=== PATIENT | female | born 1940 | race Caucasian/White ===

== ENCOUNTER 2017-11-25 12:08 | Inpatient (IN) | payer MEDICARE, MEDICAID ==
[~2017-11-25] VITALS: Ht 162.6 cm; Wt 81.2 kg
[~2017-11-25 12:08] MED LIST: CAPTOPRIL PO; CAPTOPRIL25 M1 PO; DIOVAN PO; DIOVAN80 MG PO; METFORMIN; METOPROLOL TART25 MG PO; NORVASC; NORVASC PO; NORVASC5 MG PO; RESTORIL7.5 MG PO
[2017-11-25 12:10] VITALS: BP 139/73
--- NOTE | 2017-11-25 12:55 | Emergency Room Report ---
History of Present Illness General Chief Complaint: General Complaint Source: Patient Present Illness HPI 77-year-old female presents to the emergency department brought by daughter for weakness, decreased appetite and cough x1 week. Daughter explains that patient was sent to the emergency department for evaluation from outpatient clinic. Patient was hypotensive in the clinic. Daughter states that she did not give her mother would labetalol or nifedipine this a.m. she has a history of [place], CHF , end-stage renal failure and is on dialysis 3 times a week and her last dialysis was performed on . Denies fevers or chills. History of present illness is primarily provided by daughter who is m1 armor crewman. Denies CP, Palpitations, LOC, AMS, dizziness, Changes in Vision, Sensation, paresthesias, or a sudden severe headache. Allergies: Coded Allergies: AZITHROMYCIN (Verified Allergy, Unknown, 11/25/17) WARFARIN (Verified Allergy, Unknown, 11/25/17) Patient History Limited by: language barrier - daughter translates Past Medical History: see triage record, HTN, [place], CHF, renal disease, dialysis Past Surgical History: unable to obtain Pertinent Family History: unable to obtain Now: No Reviewed Nursing Documentation: PMH: Agreed, PSxH: Agreed Nursing Documentation-PMH Past Medical History: No History, Except For Hx Cardiac Problems: Yes Hx Hypertension: Yes Hx Diabetes: Yes Hx Cancer: No Hx Gastrointestinal Problems: Yes Hx Neurological Problems: Yes Hx Cerebrovascular Accident: Yes - 2004 WD RIGHTSIDED WEAKNESS. NO RESIDUALS Review of Systems All Other Systems: negative except mentioned in HPI Physical Exam Vital Signs Date Time Temp Pulse Resp B/P (MAP) Pulse Ox O2 Delivery O2 Flow Rate FiO2 11/25/17 12:10 97.7 72 18 147/68 100 Room Air 97.7 Sp02 EP Interpretation: reviewed, normal General Appearance: no apparent distress, alert, non-toxic, lethargic Head: normocephalic, atraumatic Eyes: bilateral eye normal inspection, bilateral eye PERRL ENT: hearing grossly normal, normal voice Neck: full range of motion Respiratory: chest non-tender, lungs clear, normal breath sounds, speaking full sentences Cardiovascular #1: regular rate, rhythm, no JVD, edema - 1+ pitting edema bilaterally Gastrointestinal: normal bowel sounds, non tender, soft Rectal: deferred Genitourinary: deferred Musculoskeletal: back normal, gait/station normal, normal range of motion, non- tender Neurologic: alert, responsive, motor strength/tone normal - equal but decreased., sensory intact, speech normal, grossly normal Psychiatric: judgement/insight normal - pt. very slow to respond, accuracy is questionable Skin: normal color, no rash, warm/dry, well hydrated Medical Decision Making PA Attestation Dr. Rubi is my supervising Physician whom patient management has been discussed with. Diagnostic Impression: Primary Impression: Renal failure Qualified Codes: N18.6 - End stage renal disease; Z99.2 - Dependence on renal dialysis Additional Impression: Failure to thrive in adult ER Course 77-year-old female presents to the emergency department brought by daughter for weakness, decreased appetite and cough x1 week. Daughter explains that patient was sent to the emergency department for evaluation from outpatient clinic. Patient was hypotensive in the clinic. Daughter states that she did not give her mother would labetalol or nifedipine this a.m. she has a history of [place], CHF , end-stage renal failure and is on dialysis 3 times a week and her last dialysis was performed on . Denies fevers or chills. History of present illness is primarily provided by daughter who is m1 armor crewman. Denies CP, Palpitations, LOC, AMS, dizziness, Changes in Vision, Sensation, paresthesias, or a sudden severe headache. Ddx considered but are not limited to CHF, [place], pneumonia, contusion, costochondritis, PE, ACS, aortic dissection. Vital signs: are WNL, pt. is afebrile H&PE are most consistent with Failure to Thrive in presence of ESRD, CHF ORDERS: - EK BPM NSR - no acute ST changes reviewed by Dr. Smith , this interpretation was scribed by CANDY Santos -CBC:unremarkable -CMP: elevated glucose, elevated Cr/BUN, low albumin -Lactic Acid: 3.1, refluxed and was 1.8 -Troponin: 0.1, repeat was 0.09 -BNP: 83833 -Blood Cultures x 2 :Pending CXR: no Effusion, no pneumothorax- cardiomegaly, pace maker and sternal wires. ED INTERVENTIONS: - PT. placed on cardiac monitoring. DISPOSITION: at this time pt. will be admitted to Dr. White for Generalized weakness, FTT, Renal Failure. Dr. White agreed to admit the pt. and to continue pt. care management. Labs Test 11/25/17 14:30 11/25/17 17:45 White Blood Count 7.3 K/UL (4.8-10.8) Red Blood Count 4.23 M/UL (4.20-5.40) Hemoglobin 11.9 G/DL (12.0-16.0) Hematocrit 36.4 % (37.0-47.0) Mean Corpuscular Volume 86 FL (80-99) Mean Corpuscular Hemoglobin 28.2 PG (27.0-31.0) Mean Corpuscular Hemoglobin Concent 32.7 G/DL (32.0-36.0) Red Cell Distribution Width 13.8 % (11.6-14.8) Platelet Count 220 K/UL (150-450) Mean Platelet Volume 7.5 FL (6.5-10.1) Neutrophils (%) (Auto) 67.6 % (45.0-75.0) Lymphocytes (%) (Auto) 24.8 % (20.0-45.0) Monocytes (%) (Auto) 5.8 % (1.0-10.0) Eosinophils (%) (Auto) 1.5 % (0.0-3.0) Basophils (%) (Auto) 0.3 % (0.0-2.0) Sodium Level 125 MMOL/L (136-145) Potassium Level 3.1 MMOL/L (3.5-5.1) Chloride Level 82 MMOL/L (98-107) Carbon Dioxide Level 31 MMOL/L (21-32) Anion Gap 12 mmol/L (5-15) Blood Urea Nitrogen 49 mg/dL (7-18) Creatinine 7.6 MG/DL (0.55-1.30) Estimat Glomerular Filtration Rate mL/min (>60) Glucose Level 226 MG/DL (74-106) Calcium Level 9.5 MG/DL (8.5-10.1) Total Bilirubin 0.4 MG/DL (0.2-1.0) Aspartate Amino Transf (AST/SGOT) 27 U/L (15-37) Alanine Aminotransferase (ALT/SGPT) 20 U/L (12-78) Alkaline Phosphatase 104 U/L (46-116) Pro-B-Type Natriuretic Peptide 71432 pg/mL (0-125) Total Protein 6.9 G/DL (6.4-8.2) Albumin 3.0 G/DL (3.4-5.0) Globulin 3.9 g/dL Albumin/Globulin Ratio 0.8 (1.0-2.7) Lactic Acid Level 1.80 mmol/L (0.66-2.22) Troponin I 0.091 ng/mL (0.000-0.056) EKG Diagnostic Results Rate: normal - 63 Rhythm: NSR - normal rhythm with frequent PVC's ST Segments: no acute changes Other Impression incomplete RBBB. Chest X-Ray Diagnostic Results Chest X-Ray Diagnostic Results : Chest X-Ray Ordered: Yes # of Views/Limited/Complete: 1 View Indication: Other - weakness EP Interpretation: Yes PA Xray: Interpretation reviewed, by supervising MD, and agrees with findings. Interpretation: no consolidation, no effusion, no pneumothorax, no acute cardiopulmonary disease, other - cardiomegaly, pace maker and sternal wires. Impression: No acute disease Electronically Signed by: Marlin Santos PA-C Last Vital Signs Date Time Temp Pulse Resp B/P (MAP) Pulse Ox O2 Delivery O2 Flow Rate FiO2 11/25/17 12:10 97.7 72 18 147/68 100 Room Air 97.7 Disposition: ADMITTED INPATIENT Condition: Serious Marlin Santos Nov 25, 2017 12:55
[2017-11-25] MEDS ORDERED: SENNA8.6 M2 PO (13:30)
[2017-11-25] MEDS ORDERED: ATORVASTATIN CA40 MG ORAL (13:30)
[2017-11-25] MEDS ORDERED: ELIQUIS2.5 MG PO (13:30)
[2017-11-25] MEDS ORDERED: LEVOTHYROXINE125 MCG ORAL (13:30)
[2017-11-25] MEDS ORDERED: ADALAT10 MG ORAL (13:30)
[2017-11-25] MEDS ORDERED: RENVELA2.4 GM ORAL (13:30)
[2017-11-25] MEDS ORDERED: METOPROLOL TART50 M1 ORAL (13:30)
[2017-11-25 14:30] VITALS: BP 144/63
--- NOTE | 2017-11-25 14:37 | Diagnostic Imaging Report ---
Indication: Shortness of breath Technique: One view of the chest Comparison: 12/29/2012 Findings: Interim median sternotomy and pacemaker placement. The heart is mildly enlarged. The lungs and pleural spaces are clear. Impression: Mild cardiomegaly. No acute process Postsurgical changes, as described
[2017-11-25 14:59] LABS: BASOPHILS % (AUTO) 0.3 % (0.0-2.0); EOSINOPHILS % (AUTO) 1.5 % (0.0-3.0); HEMATOCRIT 36.4 % (37.0-47.0); HEMOGLOBIN 11.9 G/DL (12.0-16.0); LYMPHOCYTES % (AUTO) 24.8 % (20.0-45.0); MEAN CORPUSCULAR VOLUME 86 FL (80-99); MONOCYTES % (AUTO) 5.8 % (1.0-10.0); NEUTROPHILS % (AUTO) 67.6 % (45.0-75.0); PLATELET COUNT 220 K/UL (150-450); RED BLOOD COUNT 4.23 M/UL (4.20-5.40); RED CELL DISTRIBUTION WIDTH 13.8 % (11.6-14.8); WHITE BLOOD COUNT 7.3 K/UL (4.8-10.8)
[2017-11-25 15:12] VITALS: BP 128/53
[2017-11-25 15:47] LABS: ANION GAP 12 mmol/L (5-15); BLOOD UREA NITROGEN 49 mg/dL (7-18); CALCIUM 9.5 MG/DL (8.5-10.1); CARBON DIOXIDE 31 MMOL/L (21-32); CHLORIDE 82 MMOL/L (98-107); CREATININE 7.6 MG/DL (0.55-1.30); POTASSIUM 3.1 MMOL/L (3.5-5.1); SODIUM 125 MMOL/L (136-145)
[2017-11-25 16:01] LABS: ALANINE AMINOTRANSFERASE 20 U/L (12-78); ALBUMIN/GLOBULIN RATIO 0.8 (1.0-2.7); ALKALINE PHOSPHATASE 104 U/L (46-116); ASPARTATE AMINO TRANSFERASE 27 U/L (15-37); BILIRUBIN,TOTAL 0.4 MG/DL (0.2-1.0)
[2017-11-25] MEDS: Sodium Chloride 500ML 550 ML IV SCH (16:11)
[2017-11-25 17:10] VITALS: BP 142/63
[2017-11-25] MEDS ORDERED: Albuterol/Ipratropium 3ml neb HHN PRN (17:30)
[2017-11-25] MEDS ORDERED: Miralax 17gm pkt ORAL PRN (17:30)
[2017-11-25] MEDS: Eliquis 2.5mg tablet ORAL SCH (18:45)
[2017-11-25] MEDS: Renvela 2400 mg pkt ORAL SCH (18:45)
[2017-11-25 20:00] VITALS: BP 129/60
--- NOTE | 2017-11-25 20:15 | Consultation ---
Consult Note Consult Note NEUROLOGY CONSULTATION: Patient not cooperative even with Ukrainian printer repair technician. Unable to evaluate. Please only call back if and when patient agrees to be cooperative. Thanks! Clif King M.D., M.S.P.H. CLIF KING Nov 25, 2017 20:15
[2017-11-25] MEDS: Atorvastatin 20mg tab ORAL SCH (20:49)
[2017-11-25] MEDS ORDERED: Heparin 5000 units/ml inj SUBQ SCH (21:00)
[2017-11-26] VITALS: BP 147/74
[2017-11-26] MEDS: Sodium Chloride 500ML 550 ML IV SCH (03:17)
[2017-11-26 04:00] VITALS: BP 152/68
[2017-11-26] MEDS: Levothyroxine 25mcg tab ORAL SCH (06:50)
[2017-11-26 08:00] VITALS: BP 158/65
[2017-11-26] MEDS: Renvela 2400 mg pkt ORAL SCH ×3 (08:14→18:01)
[2017-11-26] MEDS: Eliquis 2.5mg tablet ORAL SCH ×2 (08:18→18:01)
--- NOTE | 2017-11-26 08:41 | General Progress Note ---
Progress Note Progress Note pt seen and examined full dialysis was ordered CLAYTON TRUONG Nov 26, 2017 08:41
[2017-11-26 08:51] LABS: BASOPHILS % (AUTO) 0.3 % (0.0-2.0); EOSINOPHILS % (AUTO) 0.3 % (0.0-3.0); HEMATOCRIT 34.3 % (37.0-47.0); HEMOGLOBIN 11.7 G/DL (12.0-16.0); LYMPHOCYTES % (AUTO) 12.5 % (20.0-45.0); MEAN CORPUSCULAR VOLUME 85 FL (80-99); MONOCYTES % (AUTO) 9.5 % (1.0-10.0); NEUTROPHILS % (AUTO) 77.5 % (45.0-75.0); PLATELET COUNT 194 K/UL (150-450); RED BLOOD COUNT 4.02 M/UL (4.20-5.40); RED CELL DISTRIBUTION WIDTH 13.8 % (11.6-14.8); WHITE BLOOD COUNT 7.8 K/UL (4.8-10.8)
--- NOTE | 2017-11-26 08:53 | Cardiology Progress Note ---
Assessment/Plan Assessment/Plan The patient is seen and examined, full consult note will be dictated shortly. Objective Last 24 Hour Vital Signs Date Time Temp Pulse Resp B/P (MAP) Pulse Ox O2 Delivery O2 Flow Rate FiO2 11/26/17 08:00 99.0 70 20 158/65 98 Nasal Cannula 3.0 11/26/17 07:35 78 18 Nasal Cannula 2.0 28 11/26/17 05:35 73 24 100 Nasal Cannula 3.0 32 11/26/17 05:23 65 22 94 Nasal Cannula 2.0 28 11/26/17 04:00 97.7 78 22 152/68 96 Nasal Cannula 11/26/17 04:00 64 11/26/17 00:00 59 11/26/17 00:00 97.0 66 20 147/74 96 Room Air 11/25/17 20:00 61 11/25/17 20:00 99.5 61 18 129/60 96 Room Air 11/25/17 17:10 97.5 64 20 142/63 Room Air 11/25/17 17:00 97.8 67 18 128/53 97 Room Air 97.8 11/25/17 15:12 67 18 128/53 97 Room Air 11/25/17 14:30 62 18 144/63 98 Room Air 11/25/17 12:10 97.8 70 18 139/73 100 Room Air 97.8 11/25/17 12:10 97.7 72 18 147/68 100 Room Air 97.7 Intake and Output 11/25/17 11/26/17 19:00 07:00 Intake Total 0 ml 200 ml Balance 0 ml 200 ml Intake Oral 0 ml 200 ml # Bowel Movements 1 Laboratory Tests Test 11/25/17 14:30 11/25/17 17:45 11/26/17 07:51 White Blood Count 7.3 K/UL (4.8-10.8) 7.8 K/UL (4.8-10.8) Red Blood Count 4.23 M/UL (4.20-5.40) 4.02 M/UL (4.20-5.40) L Hemoglobin 11.9 G/DL (12.0-16.0) L 11.7 G/DL (12.0-16.0) L Hematocrit 36.4 % (37.0-47.0) L 34.3 % (37.0-47.0) L Mean Corpuscular Volume 86 FL (80-99) 85 FL (80-99) Mean Corpuscular Hemoglobin 28.2 PG (27.0-31.0) 29.2 PG (27.0-31.0) Mean Corpuscular Hemoglobin Concent 32.7 G/DL (32.0-36.0) 34.2 G/DL (32.0-36.0) Red Cell Distribution Width 13.8 % (11.6-14.8) 13.8 % (11.6-14.8) Platelet Count 220 K/UL (150-450) 194 K/UL (150-450) Mean Platelet Volume 7.5 FL (6.5-10.1) 8.0 FL (6.5-10.1) Neutrophils (%) (Auto) 67.6 % (45.0-75.0) 77.5 % (45.0-75.0) H Lymphocytes (%) (Auto) 24.8 % (20.0-45.0) 12.5 % (20.0-45.0) L Monocytes (%) (Auto) 5.8 % (1.0-10.0) 9.5 % (1.0-10.0) Eosinophils (%) (Auto) 1.5 % (0.0-3.0) 0.3 % (0.0-3.0) Basophils (%) (Auto) 0.3 % (0.0-2.0) 0.3 % (0.0-2.0) Sodium Level 125 MMOL/L (136-145) L Pending Potassium Level 3.1 MMOL/L (3.5-5.1) L Pending Chloride Level 82 MMOL/L (98-107) L Pending Carbon Dioxide Level 31 MMOL/L (21-32) Pending Anion Gap 12 mmol/L (5-15) Blood Urea Nitrogen 49 mg/dL (7-18) H Pending Creatinine 7.6 MG/DL (0.55-1.30) H Pending Estimat Glomerular Filtration Rate mL/min (>60) Pending Glucose Level 226 MG/DL (74-106) H Pending Lactic Acid Level 3.10 mmol/L (0.66-2.22) H 1.80 mmol/L (0.66-2.22) Calcium Level 9.5 MG/DL (8.5-10.1) Pending Total Bilirubin 0.4 MG/DL (0.2-1.0) Aspartate Amino Transf (AST/SGOT) 27 U/L (15-37) Alanine Aminotransferase (ALT/SGPT) 20 U/L (12-78) Alkaline Phosphatase 104 U/L (46-116) Troponin I 0.109 ng/mL (0.000-0.056) 0.091 ng/mL (0.000-0.056) Pending Pro-B-Type Natriuretic Peptide 08902 pg/mL (0-125) H Total Protein 6.9 G/DL (6.4-8.2) Albumin 3.0 G/DL (3.4-5.0) L Pending Globulin 3.9 g/dL Albumin/Globulin Ratio 0.8 (1.0-2.7) L Phosphorus Level Pending Microbiology Date/Time Source Procedure Growth Status 11/25/17 13:00 Nasal Nares Influenza Types A,B Antigen (MATHIEU) - Final Complete MADELINE MCCAIN Nov 26, 2017 08:53
[2017-11-26 09:10] LABS: ALBUMIN 2.9 G/DL (3.4-5.0); ANION GAP 15 mmol/L (5-15); BLOOD UREA NITROGEN 55 mg/dL (7-18); CALCIUM 9.1 MG/DL (8.5-10.1); CARBON DIOXIDE 27 MMOL/L (21-32); CHLORIDE 83 MMOL/L (98-107); CREATININE 8.7 MG/DL (0.55-1.30); PHOSPHORUS 4.5 MG/DL (2.5-4.9); POTASSIUM 3.2 MMOL/L (3.5-5.1); SODIUM 125 MMOL/L (136-145)
[2017-11-26] MEDS: Nitroglycerin Subl 0.4mg tab SL PRN ×2 (09:56→14:23)
[2017-11-26] MEDS ORDERED: Guaifenesin/DM 10ml syrup ORAL PRN (11:30)
[2017-11-26 11:54] LABS: FERRITIN 2833 NG/ML (8-388); LACTATE DEHYDROGENASE 231 U/L (81-234)
[2017-11-26 12:00] VITALS: BP 156/85
[2017-11-26] MEDS ORDERED: Sennosides 8.6mg ORAL ONE (12:00)
--- NOTE | 2017-11-26 13:17 | Cardiology Report ---
APPROVED REPORT EXAM: Two-dimensional and M-mode echocardiogram with Doppler and color Doppler. INDICATION Left ventricular function M-Mode DIMENSIONS IVSd0.9 (0.7-1.1cm)Left Atrium (MM)5.4 (1.6-4.0cm) LVDd3.6 (3.5-5.6cm)Aortic Root2.8 (2.0-3.7cm) PWd1.1 (0.7-1.1cm)Aortic Cusp Exc.1.4 (1.5-2.0cm) LVDs2.5 (2.5-4.0cm) PWs1.3 cm Technically difficult study due to poor apical acoustical windows. Normal left ventricular chamber size, systolic function and wall motion to extent visulaized . Left ventricular ejection fraction estimated to be 60-65%. No evidence of left ventricular hypertrophy. No evidence of pericardial or pleural effusion. All other cardiac chamber sizes are within normal limits. Calcified aortic valve sclerosis with adequate cusp excursion. Thickened mitral valve leaflets with normal excursion. Mild mitral annulus and aortic root calcification. Pulmonic valve not well visualized. Normal tricuspid valve structure. IVC is normal in size and collapsible with respiration. A color flow and spectral Doppler study was performed and revealed: No aortic regurgitation. Trace mitral regurgitation. Mitral diastolic velocities suggest reduced left ventricular relaxation c/w diastolic dysfunction grade 3. Mild tricuspid regurgitation. Tricuspid systolic velocities suggests peak right ventricular systolic pressure of 29mmHg
--- NOTE | 2017-11-26 13:19 | Consultation ---
History of Present Illness General Date patient seen: Nov 26, 2017 Time patient seen: 12:30 Chief Complaint: General Complaint Referring physician: dr Leyva Reason for Consultation: pulm consult Present Illness HPI 77-year-old female with PMH of ESRD, on HD, CAD with [place], CHF, DM, HTN, PAF presented to the emergency department due to generalized weakness, decreased appetite and cough x1 week. Per daughter, patient was on symptomatic treatment under PCP, on the last visit was noted to be hypotensive patient was advised to go to ED for further evaluation upon evaluation patient was found to have elevated troponin-0.091 ; pro BNP- 64267 renal parameters were c/w known hx of ESRD CXR with Mild cardiomegaly. No acute process ECG showed atrial fibrillation with ventricular paced rhythm at 63. patient was admitted to telemetry ana for further management reported CP this am , ASA and Nitro given cardio seen the patient earlier no palpitations, no dizziness, + generalized weakness + emesis x1 this amn non biliary, nonbloody per daughter chronic constipation + dry cough, no wheezing, no hemoptysis no hx of COPD/asthma last HD on Saturday Allergies: Coded Allergies: AZITHROMYCIN (Verified Allergy, Unknown, 11/25/17) WARFARIN (Verified Allergy, Unknown, 11/25/17) Medication History Scheduled Amlodipine Besylate (Norvasc), 5 MG PO DAILY, (Reported) Apixaban (Eliquis), 2.5 MG PO DAILY, (Reported) Atorvastatin Calcium* (Atorvastatin Calcium*), 40 MG ORAL BEDTIME, (Reported) Captopril (Captopril), 25 MG PO DAILY, (Reported) Levothyroxine Sodium* (Levothyroxine Sodium*), 137 MCG ORAL DAILY, (Reported) Metoprolol Tartrate* (Metoprolol Tartrate*), 50 MG ORAL EVERY 12 HOURS, ( Reported) Metoprolol Tartrate* (Metoprolol Tartrate*), 25 MG ORAL EVERY 12 HOURS, ( Reported) Metoprolol Tartrate* (Metoprolol Tartrate*), 12.5 MG ORAL EVERY 12 HOURS, ( Reported) Sevelamer Carbonate* (Renvela*), 2,400 MG ORAL during meal, (Reported) Temazepam* (Restoril*), 15 MG PO QHS, (Reported) Valsartan (Diovan), 80 MG PO EVERY 12 HOURS, (Reported) Scheduled PRN Metoprolol Tartrate* (Metoprolol Tartrate*), 25 MG PO DAILY PRN, (Reported) Nifedipine (Nifedipine*), 60 MG ORAL DAILY PRN for PRN, (Reported) Miscellaneous Medications Sennosides (Senna), 8.6 MG PO, (Reported) [Metformin], (Reported) Patient History History Provided By: Patient Healthcare decision maker Resuscitation status Full Code Advanced Directive on File Review of Systems Constitutional: Reports: weakness Eye: Reports: no symptoms Respiratory: Reports: see HPI Cardiovascular: Reports: see HPI Gastrointestinal: Reports: constipation, nausea Genitourinary: Reports: other - ESRSD on HD Musculoskeletal: Reports: muscle stiffness Skin: Reports: dryness Psychiatric: Reports: depressed feelings Neurological: Reports: no symptoms Endocrine: Reports: other - DM Hematologic/Lymphatic: Reports: anemia Physical Exam General Appearance: alert, other - mild distress [place] speaking female Lines, tubes and drains: peripheral HEENT: normocephalic, atraumatic, anicteric, mucous membranes moist Neck: non-tender, normal alignment, supple Respiratory/Chest: lungs clear, other - R chest pacemaker Cardiovascular/Chest: no JVD, irregularly irregular - A fib paced, other - LUE AV shunt + bruit/thrill Abdomen: normal bowel sounds, non tender, soft Extremities: non-tender Skin Exam: warm/dry Neurologic: alert, oriented x 3, responsive Musculoskeletal: normal muscle bulk Last 24 Hour Vital Signs Date Time Temp Pulse Resp B/P (MAP) Pulse Ox O2 Delivery O2 Flow Rate FiO2 11/26/17 09:56 158/65 11/26/17 08:30 69 11/26/17 08:00 99.0 70 20 158/65 98 Nasal Cannula 3.0 11/26/17 07:35 78 18 Nasal Cannula 2.0 28 11/26/17 07:00 68 11/26/17 05:35 73 24 100 Nasal Cannula 3.0 32 11/26/17 05:23 65 22 94 Nasal Cannula 2.0 28 11/26/17 04:00 97.7 78 22 152/68 96 Nasal Cannula 11/26/17 04:00 64 11/26/17 00:00 59 11/26/17 00:00 97.0 66 20 147/74 96 Room Air 11/25/17 20:00 61 11/25/17 20:00 99.5 61 18 129/60 96 Room Air 11/25/17 17:10 97.5 64 20 142/63 Room Air 11/25/17 17:00 97.8 67 18 128/53 97 Room Air 97.8 11/25/17 15:12 67 18 128/53 97 Room Air 11/25/17 14:30 62 18 144/63 98 Room Air Intake and Output 11/25/17 11/26/17 19:00 07:00 Intake Total 0 ml 200 ml Balance 0 ml 200 ml Intake Oral 0 ml 200 ml # Bowel Movements 1 Laboratory Tests Test 11/25/17 14:30 11/25/17 17:45 11/26/17 07:51 White Blood Count 7.3 K/UL (4.8-10.8) 7.8 K/UL (4.8-10.8) Red Blood Count 4.23 M/UL (4.20-5.40) 4.02 M/UL (4.20-5.40) L Hemoglobin 11.9 G/DL (12.0-16.0) L 11.7 G/DL (12.0-16.0) L Hematocrit 36.4 % (37.0-47.0) L 34.3 % (37.0-47.0) L Mean Corpuscular Volume 86 FL (80-99) 85 FL (80-99) Mean Corpuscular Hemoglobin 28.2 PG (27.0-31.0) 29.2 PG (27.0-31.0) Mean Corpuscular Hemoglobin Concent 32.7 G/DL (32.0-36.0) 34.2 G/DL (32.0-36.0) Red Cell Distribution Width 13.8 % (11.6-14.8) 13.8 % (11.6-14.8) Platelet Count 220 K/UL (150-450) 194 K/UL (150-450) Mean Platelet Volume 7.5 FL (6.5-10.1) 8.0 FL (6.5-10.1) Neutrophils (%) (Auto) 67.6 % (45.0-75.0) 77.5 % (45.0-75.0) H Lymphocytes (%) (Auto) 24.8 % (20.0-45.0) 12.5 % (20.0-45.0) L Monocytes (%) (Auto) 5.8 % (1.0-10.0) 9.5 % (1.0-10.0) Eosinophils (%) (Auto) 1.5 % (0.0-3.0) 0.3 % (0.0-3.0) Basophils (%) (Auto) 0.3 % (0.0-2.0) 0.3 % (0.0-2.0) Sodium Level 125 MMOL/L (136-145) L 125 MMOL/L (136-145) L Potassium Level 3.1 MMOL/L (3.5-5.1) L 3.2 MMOL/L (3.5-5.1) L Chloride Level 82 MMOL/L (98-107) L 83 MMOL/L (98-107) L Carbon Dioxide Level 31 MMOL/L (21-32) 27 MMOL/L (21-32) Anion Gap 12 mmol/L (5-15) 15 mmol/L (5-15) Blood Urea Nitrogen 49 mg/dL (7-18) H 55 mg/dL (7-18) H Creatinine 7.6 MG/DL (0.55-1.30) H 8.7 MG/DL (0.55-1.30) H Estimat Glomerular Filtration Rate mL/min (>60) mL/min (>60) Glucose Level 226 MG/DL (74-106) H 199 MG/DL (74-106) H Lactic Acid Level 3.10 mmol/L (0.66-2.22) H 1.80 mmol/L (0.66-2.22) Calcium Level 9.5 MG/DL (8.5-10.1) 9.1 MG/DL (8.5-10.1) Total Bilirubin 0.4 MG/DL (0.2-1.0) Aspartate Amino Transf (AST/SGOT) 27 U/L (15-37) Alanine Aminotransferase (ALT/SGPT) 20 U/L (12-78) Alkaline Phosphatase 104 U/L (46-116) Troponin I 0.109 ng/mL (0.000-0.056) 0.091 ng/mL (0.000-0.056) 0.094 ng/mL (0.000-0.056) Pro-B-Type Natriuretic Peptide 37730 pg/mL (0-125) H Total Protein 6.9 G/DL (6.4-8.2) Albumin 3.0 G/DL (3.4-5.0) L 2.9 G/DL (3.4-5.0) L Globulin 3.9 g/dL Albumin/Globulin Ratio 0.8 (1.0-2.7) L Reticulocyte Count 1.0 % (0.0-2.0) Phosphorus Level 4.5 MG/DL (2.5-4.9) Ferritin 2833 NG/ML (8-388) H Lactate Dehydrogenase 231 U/L (81-234) Vitamin B12 Level 1057 PG/ML (193-986) H Height (Feet): 5 Height (Inches): 4.00 Weight (Pounds): 150 Medications Current Medications Medications (Trade) Dose Ordered Sig/Keeley Route PRN Reason Start Time Stop Time Status Last Admin Dose Admin Acetaminophen (Tylenol) 650 mg Q4H PRN ORAL T>100.5 11/25/17 17:30 12/25/17 17:29 11/26/17 05:20 Albuterol/ Ipratropium (Albuterol/ Ipratropium) 3 ml Q4H PRN HHN Shortness of Breath 11/25/17 17:30 11/30/17 17:29 11/26/17 05:22 Apixaban (Eliquis) 5 mg BID ORAL 11/25/17 18:00 12/25/17 17:59 11/26/17 08:18 Atorvastatin Calcium (Lipitor) 40 mg BEDTIME ORAL 11/25/17 21:00 12/25/17 20:59 11/25/17 20:49 Dextrose (Dextrose 50%) STAT PRN IV Hypoglycemia 11/25/17 17:30 12/25/17 17:29 Guaifenesin/ Dextromethorphan (Robitussin DM Syrup) 10 ml Q6H PRN ORAL For Cough 11/26/17 11:30 12/26/17 11:29 11/26/17 12:12 Levothyroxine Sodium (Synthroid) 25 mcg DAILY@0630 ORAL 11/26/17 06:30 12/26/17 06:29 11/26/17 06:50 Levothyroxine Sodium (Synthroid) 112 mcg DAILY@0630 ORAL 11/26/17 06:30 12/26/17 06:29 11/26/17 06:50 Nitroglycerin (Ntg) 0.4 mg Q5M PRN SL Prn Chest Pain 11/26/17 10:00 12/26/17 09:59 11/26/17 09:56 Ondansetron HCl (Zofran) 4 mg Q6H PRN IVP Nausea & Vomiting 11/25/17 17:30 12/25/17 17:29 11/26/17 12:13 Polyethylene Glycol (Miralax) 17 gm DAILYPRN PRN ORAL Constipation 11/25/17 17:30 12/25/17 17:29 Sevelamer Carbonate (Renvela) 2,400 mg TID ORAL 11/25/17 18:00 12/25/17 17:59 11/26/17 12:12 Temazepam (Restoril) 15 mg HSPRN PRN ORAL Insomnia 11/25/17 21:00 12/02/17 20:59 Assessment/Plan Assessment/Plan ASSESSMENT generalized weakness likely due to hypotension, dehydration and e/lyte imbalance elevated troponin ? troponin leak 2 to ESRD possible demand ischemia with hx of CAD dehydration hypovolemic hypoNa hypokalemia hypotension ESRD, on HD acute bronchitis significant diastolic dysfunction, grade 3 , but no clinical evidence of decompensation A Fib hypothyroidism DM nausea with vomiting liekkly due to e/lyte imbalance constipation pacemaker PLAN OF CARE tele serial troponin cardio follows ECHO with EF 60-65% and RVSP of 29, as well as evidence of significant diastolic dysfunction grade 3, no evidence of decompensation a/coag with Eliquis, rate controlled dehydrated with low BP initially, emesis afterwards O2 prn, titrate HHN ATC and prn a/tussive prn Tessalon pearles HD as per nephro monitor renal parameters, correct lytes -per nephro avoid nephrotoxic a/emetic prn bowel regimen check TSH GI prophylaxis BS management with SS of sensitive insulin , accuchecks case discussed and evaluated by supervising physician Marcelino (Honeyjeison),Sherice PEACOCK Nov 26, 2017 13:19
[2017-11-26 16:00] VITALS: BP 154/79
--- NOTE | 2017-11-26 16:00 | Consultation ---
DATE OF CONSULTATION: 11/26/2017 HEMATOLOGY/ONCOLOGY CONSULTATION CONSULTING PHYSICIAN: Judd Figueroa M.D. REASON FOR CONSULTATION: Evaluation of anemia. IDENTIFICATION DATA: The patient is a pleasant 77-year-old female with past medical history, which is significant for hypertension, NM, CHF, renal disease, history of being on dialysis, at this time presents to office for weakness, fatigue, decreased appetite, and cough for the past week, hypertensive in the clinic gave her mother labetalol this morning. The patient again has been on hemodialysis three times a week. Denies any chest pain, palpitations, loss of consciousness, and altered mental status, and Hematology Service was consulted given history of anemia and end-stage renal disease. PAST MEDICAL HISTORY: As noted above. PAST SURGICAL HISTORY: Unobtainable. ALLERGIES: To azithromycin and warfarin. FAMILY HISTORY: Unobtainable. REVIEW OF SYSTEMS: CONSTITUTIONAL: No fever, chills, or night sweats. SKIN: No rashes, bumps, or itching. HEENT: No headache, hearing or vision changes. BREASTS: No lumps, pain, or discharge. PULMONARY: No cough, sputum, or shortness of breath. GASTROINTESTINAL: No nausea, vomiting, or diarrhea. GENITOURINARY: No dysuria, frequency, or urgency. MUSCULOSKELETAL: No joint swelling, muscle pain, or trauma. PHYSICAL EXAMINATION: VITAL SIGNS: Reviewed. GENERAL: No distress. PULMONARY: Decreased breath sounds. CARDIOVASCULAR: Regular rate. No S3 or S4. ABDOMEN: Soft, nontender, and nondistended. EXTREMITIES: No cyanosis, swelling, or edema. LABORATORY AND DIAGNOSTIC DATA: WBC 7.3, hemoglobin 11.9, hematocrit 36, and platelets 220,000. Chemistry reviewed. BUN 129 and creatinine 7.3. Lactic acid 3.1 on admission. ASSESSMENT AND RECOMMENDATIONS: 1. Anemia due to underlying chronic disease. Continue to closely monitor. Anemia workup has been ordered. 2. Anemia due to underlying kidney disease. Continue to closely monitor. 3. Hypokalemia. Replace potassium as needed. 4. Hyponatremia. Consider Nephrology evaluation. 5. Altered mental status. The patient to be seen by Neurology, Dr. King. 6. Lactic acidosis. Rule out infection. 7. End-stage renal disease, on hemodialysis. I appreciate the consultation. Judd Figueroa M.D. DR: Milly JOB#: [id number] CC:
[2017-11-26] MEDS: NovoLOG Insulin Flexpen SUBQ SCH ×2 (16:23→21:30)
--- NOTE | 2017-11-26 16:45 | Consultation ---
DATE OF CONSULTATION: 11/26/2017 CARDIOLOGY CONSULTATION CONSULTING PHYSICIAN: Yovanny Argueta M.D. REFERRING PHYSICIAN: Magnus Leyva D.O. REASON FOR CONSULTATION: Management of elevated troponin-I level in a patient with history of CAD. HISTORY OF PRESENT ILLNESS: The patient is a very unfortunate 77-year-old female who presents to the emergency department for weakness, decreased appetite, and cough for about a week. On arrival to the hospital, she did not have any chest pain or shortness of breath. Apparently, the last hemodialysis was last . She has history of end-stage renal disease, on hemodialysis three times weekly. The patient's initial vital signs revealed blood pressure 147/68 mmHg and heart rate of 72. A 12-lead electrocardiogram was significant for atrial fibrillation and ventricular paced rhythm. She has a history of dual-chamber pacemaker on the right side of her pectoral area as well as prior history of coronary artery bypass graft surgery. She is a poor historian and she is not capable of providing any history at this time. PAST MEDICAL HISTORY: 1. Coronary artery disease, status post coronary artery bypass graft surgery, status post myocardial infarction. 2. History of congestive heart failure. 3. History of end-stage renal disease, on dialysis three days a week. 4. History of hypertension. 5. Diabetes mellitus. 6. 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 7. Also history of gastroesophageal reflux disease. PAST SURGICAL HISTORY: Coronary artery bypass graft surgery/thoracotomy. ALLERGIES: Azithromycin and warfarin. MEDICATIONS: List of medication includes amlodipine 5 mg p.o. daily, apixaban 2.5 mg p.o. daily, atorvastatin 40 mg p.o. at bedtime, captopril 25 mg p.o. daily, levothyroxine 137 mcg p.o. daily, metoprolol 25 mg p.o. daily p.r.n. and 50 mg q.12 h., nifedipine 60 mg p.o. daily p.r.n. systolic blood pressure above 160, senna 8.6 mg p.o. daily, Renvela 2400 mg p.o. with each meal, Restoril 15 mg p.o. at bedtime, and valsartan 80 mg p.o. q.12 h. SOCIAL HISTORY: Denies any tobacco, alcohol, or illicit drug use. FAMILY HISTORY: No premature coronary artery disease in first-degree relatives. REVIEW OF SYSTEMS: HEENT: Denies any headache, diplopia, or blurred vision. CONSTITUTIONAL: Complains of generalized weakness, but no fever, chills, or night sweats. CARDIOVASCULAR: Denies any chest pain, shortness breath, PND, orthopnea, leg swelling, syncope, or palpitation. PULMONARY: Denies any cough, hemoptysis, or wheezing. GASTROINTESTINAL: Denies any nausea, vomiting, diarrhea, constipation, abdominal pain, or GI bleed. GENITOURINARY: On hemodialysis three days a week. NEUROLOGY: History of stroke with right hemiparesis. PHYSICAL EXAMINATION: VITAL SIGNS: Blood pressure at time of arrival to the hospital was 147/68, respirations 18, pulse of 82, temperature 97.7 degrees Fahrenheit, and O2 saturation 100% on room air. GENERAL: The patient is a very unfortunate, 77-year-old female, in no apparent respiratory distress. HEENT: Atraumatic and normocephalic. ENT, pupils are equal, round, and reactive to light and accommodation. Extraocular muscles intact. NECK: JVP is less than 5 cm. No carotid bruits. Carotid upstroke is 2+ bilaterally. CARDIOVASCULAR: Normal S1 and S2. Regular rate and rhythm. No murmurs, gallops, or rubs. PMI is at fourth intercostal space in the midclavicular line. Presence of a pacemaker pocket in the right pectoral area. LUNGS: Clear to auscultation bilaterally. ABDOMEN: Soft, nontender, and nondistended. No hepatosplenomegaly. Positive bowel sounds. EXTREMITIES: No evidence of edema, clubbing, or cyanosis. LABORATORY AND DIAGNOSTIC DATA: WBC 7.3, hemoglobin 11.9, hematocrit 36.4, and platelet count 220. Sodium 125, potassium 3.1, chloride 82, bicarbonate 31, BUN of 49, creatinine 7.6, glucose 226, and calcium is 9.5. Her troponin-I level is 0.1. ProBNP was 10,519. ECG showed atrial fibrillation with ventricular paced rhythm at 63. ASSESSMENT AND PLAN: The patient is a very unfortunate 77-year-old lady, who is seen in Cardiology consultation at the request of Dr. Leyva. 1. Slight elevation of troponin-I level, could be secondary to troponin leak due to hemodialysis or could be secondary to her underlying coronary artery disease and demand ischemia. Unfortunately, a 12-lead electrocardiogram cannot assess ST-segment changes due to ventricular paced rhythm. At the time of arrival to the hospital, the patient has not been chest pain free. 2. We will require to review her prior cardiac history and obtain the last coronary angiography. It seems that the patient has history of coronary artery bypass graft surgery in the past. 3. Troponin-I rise is likely not typical for acute coronary syndrome as the pattern of rise is plateaued and not quite representing acute plaque rupture. We will like to obtain 2D echocardiography for assessment of left ventricular systolic function. 4. In the meantime, we will continue with beta-ilda, high-intensity statins, and aspirin. 5. Atrial fibrillation. Given the fact as the patient has been on apixaban 2.5 mg daily, this is underdosed in a dialysis patient and requires to be twice daily. 6. She has high risk for cerebrovascular accident given very high CHADS score. 7. History of congestive heart failure. We would like to obtain 2D echocardiography for assessment of this condition. Clinically does not appear in heart failure. 8. Generalized weakness. The patient has abnormal electrolytes, which can explain this condition. Nephrology consultation to address the hyponatremia as well as hypokalemia. 9. Status post dual-chamber pacemaker implantation. We will find about the brand of the pacemaker and we will have it interrogated. I would like to thank Dr. Leyva for allowing me to participate in care of this patient. Yovanny Argueta M.D. DR: SHAHRZAD JOB#: [id number] CC:
[2017-11-26] MEDS: Benzonatate 100mg Perles ORAL SCH (18:01)
[2017-11-26 20:00] VITALS: BP 155/56
[2017-11-26] MEDS: Albuterol/Ipratropium 3ml neb INH SCH (20:45)
--- NOTE | 2017-11-26 20:45 | History and Physical Report ---
DATE OF ADMISSION: 11/25/2017 TIME SEEN: 11/26/2017, 2 p.m. ATTENDING PHYSICIAN: Magnus Leyva D.O. CONSULTANTS: 1. Khurram White M.D. 2. Yovanny Argueta M.D. 3. Priti Gonzalez M.D. 4. Judd Figueroa M.D. 5. Diallo King M.D. CHIEF COMPLAINT: Weakness, hypotension, and ESRD, on dialysis. BRIEF HISTORY: The patient is a 77-year-old female, who lives at home, presents to [place] ER last night with history of increased weakness and was found to be hypotensive. The patient was admitted to telemetry for further care. Currently, O2 NC, calm in bed, slight short of breath, slightly weak. No complaint. PAST MEDICAL HISTORY: ESRD, hypothyroid, and failure to thrive. PAST SURGICAL HISTORY: Pacemaker, fistula, and heart surgery. MEDICATIONS: Albuterol, Tessalon Perles, NovoLog, Robitussin, nitroglycerin, levothyroxine, Synthroid, Lipitor, Restoril, Eliquis, Renvela, albuterol, Zofran, Tylenol and MiraLAX. ALLERGIES: Erythromycin and warfarin. SOCIAL HISTORY: No smoking. No alcohol. No intravenous drug abuse. FAMILY HISTORY: Noncontributory. REVIEW OF SYSTEMS: No chest pain. Slight shortness of breath. No nausea, vomiting, or diarrhea. PHYSICAL EXAMINATION: GENERAL: O2 NC in nose, lethargic in bed, oriented x1, in no acute distress. VITAL SIGNS: Temperature is 99 degrees, pulse 70, respirations 20, and blood pressure 158/65. CARDIOVASCULAR: No murmur. LUNGS: Poor air exchange. ABDOMEN: Bowel sounds distant. EXTREMITIES: No cyanosis, clubbing, or edema. NEUROLOGIC: The patient moves all extremities, but slightly weak. LABORATORY AND DIAGNOSTIC DATA: Labs at this time show hemoglobin 11.7, otherwise CBC is normal. BMP shows sodium 125, potassium 3.2, chloride 83, BUN and creatinine 55 and 8.7 and glucose 199. Troponin 0.091 and 0.094. Albumin 2.9. ASSESSMENT: 1. Weakness. 2. Hypotension. 3. Anemia. 4. End-stage renal disease, on dialysis. 5. Hypothyroid. 6. Diabetes. 7. Failure to thrive. 8. Elevated troponin. PLAN: 1. Continue premedication. 2. O2 NC. 3. OT/PT. 4. Dietary evaluation. 5. CBC and BMP in the morning. 6. Dialysis. 7. Resume home medications. 8. Blood pressure and blood sugar control. 9. Dietary followup. 10. Dr. White, Dr. Argueta, Dr. Gonzalez, Dr. Figueroa and Dr. King to consult. Magnus Leyva D.O. DR: YONI JOB#: [id number] CC:
[2017-11-26] MEDS: Atorvastatin 20mg tab ORAL SCH (21:26)
[2017-11-27] VITALS: BP 162/91
--- NOTE | 2017-11-27 01:00 | Consultation ---
DATE OF CONSULTATION: 11/26/2017 NEPHROLOGY CONSULTATION CONSULTING PHYSICIAN: Priti Gonzalez M.D. REFERRING PHYSICIAN: Benjamin Shi M.D. REASON FOR CONSULTATION: End-stage renal disease, hyponatremia, and hypokalemia. HISTORY OF PRESENT ILLNESS: The patient is a pleasant unfortunate 77-year-old female with past medical history significant for history of hypertension, end-stage renal disease, anemia of chronic kidney disease, renal osteodystrophy, history of diabetes, on dialysis Saturday and and Saturday, history of AV fistula placement, and hypothyroidism, who was actually brought into the emergency room by her daughter who currently is in her bedside for generalized weakness, decreased oral intake, and cough for one week. In the ER, the patient found to be hypotensive. The patient was not given her medication including labetalol and nifedipine. She consequently was admitted with diagnosis of acute coronary syndrome, history of hyponatremia, and hypokalemia. I was called for management of renal disease and electrolyte imbalance. PAST MEDICAL HISTORY: 1. History of end-stage renal disease. 2. Anemia of chronic kidney disease. 3. Renal osteodystrophy. 4. Hypertension. 5. Diabetes. 6. History of [place]. 7. History of CHF. 8. History of CVA in 2004 with right-sided weakness. 9. History of hypothyroidism. 10. History of morbid obesity. ALLERGIES: She is allergic to azithromycin and warfarin. MEDICATIONS: At home are includin. Amlodipine 5 mg p.o. daily. 2. Eliquis 2.5 mg p.o. daily. 3. Atorvastatin 40 mg p.o. daily. 4. Captopril 25 mg p.o. daily. 5. Levothyroxine 137 daily. 6. Metoprolol 50 mg p.o. daily. 7. Renvela 2400 mg p.o. daily. 8. Temazepam p.r.n. at bedtime. 9. Diovan 80 mg p.o. daily. 10. Nifedipine 60 mg p.o. daily. FAMILY HISTORY: Noncontributory. REVIEW OF SYSTEMS: GENERAL: The patient somehow not very cooperative, but she answered the questions to her daughter who was at bedside and the patient had weakness. Denied having any fever, chills, or night sweats. HEAD AND NECK: Denies any dysphagia, odynophagia, blurry vision, headache, or neck stiffness. PULMONARY: She has some shortness of breath, cough, and yellow sputum. CARDIOVASCULAR: Denies any chest pain or palpitations. GASTROINTESTINAL: Decreased appetite. No nausea. No vomiting. GENITOURINARY: No dysuria, frequency, or hematuria. PHYSICAL EXAMINATION: VITAL SIGNS: The patient had temperature of 97, pulse rate of 69, respiratory rate of 20, blood pressure was 168/65, and O2 saturation of 98%. HEAD AND NECK: No JVP. No LAD. No thyromegaly. Extraocular movement intact. Pupils are reactive to light and accommodation. LUNGS: Clear to auscultation. CARDIAC: Regular rate and rhythm. S1 and S2. No murmur. No rub. ABDOMEN: Soft, nontender, and nondistended. EXTREMITIES: Trace edema. No clubbing. No cyanosis. LABORATORY AND DIAGNOSTIC DATA: Laboratory values, the patient has WBC count of 7.8, hemoglobin of 11.7, hematocrit of 34.3, and platelet count of 194,000. Chemistry reveals sodium 125, potassium 3.2, chloride 83, bicarbonate 27, BUN of 55, creatinine of 8.7, glucose of 199, calcium of 9.1, and phosphorus of 4.5. Troponin is elevated, 0.94. BNP of 1057. The patient had a chest x-ray, which revealed mild cardiomegaly, no cardiopulmonary disease. ASSESSMENT: 1. Hypovolemic hyponatremia. 2. Hypokalemia. 3. End-stage renal disease. 4. Anemia of chronic kidney disease. 5. Renal osteodystrophy. 6. Hypertension. 7. stable. 8. History of cough for one week. 9. History of congestive heart failure. PLAN: Discontinue IV fluid. Hold antihypertensive medication. Dialysis to be done today. Replace the potassium. Check the potassium level post dialysis. I would hold antihypertensive medication at this time. Check PTH. Restart the patient on Epogen for anemia of chronic kidney disease based on her hemoglobin and hematocrit. I would monitor electrolytes closely. Again, I would like to thank, Dr. Shi, for allowing me to participate in the care of this patient. Priti Gonzalez M.D. DR: JAIME JOB#: [id number] CC:
[2017-11-27] MEDS: Levothyroxine 25mcg tab ORAL SCH (06:32)
[2017-11-27] MEDS: NovoLOG Insulin Flexpen SUBQ SCH ×4 (06:33→20:37)
[2017-11-27] MEDS: Albuterol/Ipratropium 3ml neb INH SCH ×3 (07:50→20:45)
[2017-11-27 08:00] VITALS: BP 143/81
[2017-11-27 08:22] LABS: BASOPHILS % (AUTO) 0.2 % (0.0-2.0); EOSINOPHILS % (AUTO) 0.2 % (0.0-3.0); HEMATOCRIT 30.7 % (37.0-47.0); HEMOGLOBIN 10.3 G/DL (12.0-16.0); LYMPHOCYTES % (AUTO) 9.8 % (20.0-45.0); MEAN CORPUSCULAR VOLUME 86 FL (80-99); MONOCYTES % (AUTO) 9.4 % (1.0-10.0); NEUTROPHILS % (AUTO) 80.3 % (45.0-75.0); PLATELET COUNT 194 K/UL (150-450); RED BLOOD COUNT 3.55 M/UL (4.20-5.40); RED CELL DISTRIBUTION WIDTH 14.3 % (11.6-14.8); WHITE BLOOD COUNT 8.3 K/UL (4.8-10.8)
[2017-11-27] MEDS: Eliquis 2.5mg tablet ORAL SCH ×2 (09:00→17:59)
[2017-11-27 09:02] LABS: ANION GAP 8 mmol/L (5-15); BLOOD UREA NITROGEN 33 mg/dL (7-18); CALCIUM 8.7 MG/DL (8.5-10.1); CARBON DIOXIDE 33 MMOL/L (21-32); CHLORIDE 92 MMOL/L (98-107); CREATININE 6.5 MG/DL (0.55-1.30); POTASSIUM 3.5 MMOL/L (3.5-5.1); SODIUM 133 MMOL/L (136-145)
[2017-11-27] MEDS: Renvela 2400 mg pkt ORAL SCH ×3 (10:02→17:57)
[2017-11-27] MEDS: Benzonatate 100mg Perles ORAL SCH ×3 (10:02→17:56)
[2017-11-27 12:00] VITALS: BP 144/65
--- NOTE | 2017-11-27 12:42 | Pulmonology Progress Note ---
Assessment/Plan Problems: (1) Nausea & vomiting (2) ESRF (end stage renal failure) (3) CHF (congestive heart failure) (4) A-fib (5) Pacemaker (6) Failure to thrive in adult Assessment/Plan eating better no SOB titrate fio2 to sat of 92% HR controlled HD as per nephrology, dialyzed yesterday. Subjective ROS Limited/Unobtainable: No Interval Events: sitting up on the chair Allergies: Coded Allergies: AZITHROMYCIN (Verified Allergy, Unknown, 11/25/17) WARFARIN (Verified Allergy, Unknown, 11/25/17) Objective Last 24 Hour Vital Signs Date Time Temp Pulse Resp B/P (MAP) Pulse Ox O2 Delivery O2 Flow Rate FiO2 11/27/17 12:00 97.7 83 18 144/65 99 Nasal Cannula 3.0 97.7 11/27/17 08:20 74 20 99 Nasal Cannula 2.0 28 11/27/17 08:00 97.9 82 18 143/81 95 Nasal Cannula 3.0 97.9 11/27/17 07:50 71 20 96 Nasal Cannula 2.0 28 11/27/17 07:50 Nasal Cannula 2.0 28 11/27/17 07:50 94 Nasal Cannula 2.0 28 11/27/17 04:00 72 11/27/17 00:00 98.2 84 18 162/91 97 Nasal Cannula 3.0 98.2 11/27/17 00:00 76 11/26/17 20:48 75 16 Nasal Cannula 2.0 28 11/26/17 20:00 85 11/26/17 20:00 95 Nasal Cannula 2.0 28 11/26/17 20:00 99.3 81 20 155/56 97 Nasal Cannula 3.0 99.3 11/26/17 20:00 Nasal Cannula 2.0 28 11/26/17 19:47 Nasal Cannula 11/26/17 19:45 79 20 99 Nasal Cannula 2.0 28 11/26/17 19:30 75 20 97 Nasal Cannula 2.0 28 11/26/17 19:30 75 16 Nasal Cannula 2.0 28 11/26/17 16:30 Nasal Cannula 11/26/17 16:00 56 11/26/17 16:00 97.5 67 20 154/79 96 Nasal Cannula 3.0 97.5 11/26/17 14:23 158/65 Intake and Output 11/26/17 11/27/17 19:00 07:00 Intake Total 640 ml 200 ml Output Total 1000 ml Balance 640 ml -800 ml Intake Oral 290 ml 200 ml IV Total 350 ml Output Hemodialysis UF 1000 ml Objective General Appearance: alert, other - mild distress Serbian speaking female Lines, tubes and drains: peripheral HEENT: normocephalic, atraumatic, anicteric, mucous membranes moist Neck: non-tender, normal alignment, supple Respiratory/Chest: lungs clear, other - R chest pacemaker Cardiovascular/Chest: no JVD, irregularly irregular - A fib paced, other - LUE AV shunt + bruit/thrill Abdomen: normal bowel sounds, non tender, soft Extremities: non-tender Skin Exam: warm/dry Neurologic: alert, oriented x 3, responsive Musculoskeletal: normal muscle bulk Microbiology Date/Time Source Procedure Growth Status 11/25/17 14:55 Blood Blood Culture - Preliminary NO GROWTH AFTER 24 HOURS Resulted 11/25/17 14:30 Blood Blood Culture - Preliminary NO GROWTH AFTER 24 HOURS Resulted 11/25/17 16:40 Nasal Nares Left MRSA Culture - Final NO METHICILLIN RESISTANT STAPH AUREUS... Complete 11/25/17 13:00 Nasal Nares Influenza Types A,B Antigen (MATHIEU) - Final Complete 11/25/17 16:40 Rectum VRE Culture - Final NO VANCOMYCIN RESISTANT ENTEROCOCCUS ... Complete Laboratory Tests 11/26/17 18:15: Haptoglobin [Pending], Fibrinogen 558H, Homocystine 22.2H 11/27/17 07:45: White Blood Count 8.3, Red Blood Count 3.55L, Hemoglobin 10.3L, Hematocrit 30.7L , Mean Corpuscular Volume 86, Mean Corpuscular Hemoglobin 29.0, Mean Corpuscular Hemoglobin Concent 33.6, Red Cell Distribution Width 14.3, Platelet Count 194, Mean Platelet Volume 7.7, Neutrophils (%) (Auto) 80.3H, Lymphocytes ( %) (Auto) 9.8L, Monocytes (%) (Auto) 9.4, Eosinophils (%) (Auto) 0.2, Basophils (%) (Auto) 0.2, Sodium Level 133L, Potassium Level 3.5, Chloride Level 92L, Carbon Dioxide Level 33H, Anion Gap 8, Blood Urea Nitrogen 33H, Creatinine 6.5H , Estimat Glomerular Filtration Rate , Glucose Level 161H, Hemoglobin A1c 7.8H, Calcium Level 8.7, Troponin I 0.148H, Thyroid Stimulating Hormone (TSH) 1.467 Current Medications Medications (Trade) Dose Ordered Sig/Keeely Route PRN Reason Start Time Stop Time Status Last Admin Dose Admin Acetaminophen (Tylenol) 650 mg Q4H PRN ORAL T>100.5 11/25/17 17:30 12/25/17 17:29 11/26/17 05:20 Albuterol/ Ipratropium (Albuterol/ Ipratropium) 3 ml Q4H PRN HHN Shortness of Breath 11/25/17 17:30 11/30/17 17:29 11/26/17 05:22 Albuterol/ Ipratropium (Albuterol/ Ipratropium) 3 ml TIDRT INH 11/26/17 19:00 12/01/17 18:59 11/27/17 07:50 Apixaban (Eliquis) 5 mg BID ORAL 11/25/17 18:00 12/25/17 17:59 11/27/17 09:00 Atorvastatin Calcium (Lipitor) 40 mg BEDTIME ORAL 11/25/17 21:00 12/25/17 20:59 11/26/17 21:26 Benzonatate (Tessalon Perles) 100 mg THREE TIMES A DAY ORAL 11/26/17 18:00 12/26/17 17:59 11/27/17 10:02 Dextrose (Dextrose 50%) STAT PRN IV Hypoglycemia 11/25/17 17:30 12/25/17 17:29 Guaifenesin/ Dextromethorphan (Robitussin DM Syrup) 10 ml Q6H PRN ORAL For Cough 11/26/17 11:30 12/26/17 11:29 11/26/17 12:12 Insulin Aspart (NovoLOG) BEFORE MEALS AND HS SUBQ 11/26/17 16:30 12/26/17 16:29 11/27/17 06:33 Levothyroxine Sodium (Synthroid) 25 mcg DAILY@0630 ORAL 11/26/17 06:30 12/26/17 06:29 11/27/17 06:32 Levothyroxine Sodium (Synthroid) 112 mcg DAILY@0630 ORAL 2/20/18 06:30 12/26/17 06:29 11/27/17 06:32 Nitroglycerin (Ntg) 0.4 mg Q5M PRN SL Prn Chest Pain 11/26/17 10:00 12/26/17 09:59 11/26/17 14:23 Ondansetron HCl (Zofran) 4 mg Q6H PRN IVP Nausea & Vomiting 11/25/17 17:30 12/25/17 17:29 11/26/17 12:13 Polyethylene Glycol (Miralax) 17 gm DAILYPRN PRN ORAL Constipation 11/25/17 17:30 12/25/17 17:29 Sevelamer Carbonate (Renvela) 2,400 mg TID ORAL 11/25/17 18:00 12/25/17 17:59 11/27/17 10:02 Temazepam (Restoril) 15 mg HSPRN PRN ORAL Insomnia 11/25/17 21:00 12/02/17 20:59 BETTINA DELUCA Nov 27, 2017 12:42
[2017-11-27] MEDS: Sennosides 8.6mg ORAL SCH (14:19)
[2017-11-27] MEDS: Dronabinol 2.5mg Cap ORAL SCH (14:19)
--- NOTE | 2017-11-27 14:26 | General Progress Note ---
Assessment/Plan Problem List: (1) Diabetes ICD Codes: E11.9 - Type 2 diabetes mellitus without complications SNOMED: 10879601 (2) Hypothyroid ICD Codes: E03.9 - Hypothyroidism, unspecified SNOMED: 22373636 (3) Renal failure ICD Codes: N19 - Unspecified kidney failure SNOMED: 26441929 Qualifiers: Qualified Codes: N18.6 - End stage renal disease; Z99.2 - Dependence on renal dialysis (4) Failure to thrive in adult ICD Codes: R62.7 - Adult failure to thrive SNOMED: 839451345 (5) CHF (congestive heart failure) ICD Codes: I50.9 - Heart failure, unspecified SNOMED: 95658260 (6) Pacemaker ICD Codes: Z95.0 - Presence of cardiac pacemaker SNOMED: 765188515 (7) ESRF (end stage renal failure) ICD Codes: N18.6 - End stage renal disease SNOMED: 16700412 Status: unchanged Assessment/Plan ot pt diet dialysis bp bs control cbc bmp am Subjective Constitutional: Reports: weakness Respiratory: Reports: shortness of breath Allergies: Coded Allergies: AZITHROMYCIN (Verified Allergy, Unknown, 11/25/17) WARFARIN (Verified Allergy, Unknown, 11/25/17) All Systems: reviewed and negative except above Subjective o2nc calm Objective Last 24 Hour Vital Signs Date Time Temp Pulse Resp B/P (MAP) Pulse Ox O2 Delivery O2 Flow Rate FiO2 11/27/17 13:47 71 20 97 Nasal Cannula 2.0 28 11/27/17 12:00 97.7 83 18 144/65 99 Nasal Cannula 3.0 97.7 11/27/17 12:00 73 11/27/17 08:20 74 20 99 Nasal Cannula 2.0 28 11/27/17 08:00 97.9 82 18 143/81 95 Nasal Cannula 3.0 97.9 11/27/17 08:00 77 11/27/17 07:50 71 20 96 Nasal Cannula 2.0 28 11/27/17 07:50 Nasal Cannula 2.0 28 11/27/17 07:50 94 Nasal Cannula 2.0 28 11/27/17 04:00 72 11/27/17 00:00 98.2 84 18 162/91 97 Nasal Cannula 3.0 98.2 11/27/17 00:00 76 11/26/17 20:48 75 16 Nasal Cannula 2.0 28 11/26/17 20:00 85 11/26/17 20:00 95 Nasal Cannula 2.0 28 11/26/17 20:00 99.3 81 20 155/56 97 Nasal Cannula 3.0 99.3 11/26/17 20:00 Nasal Cannula 2.0 28 11/26/17 19:47 Nasal Cannula 11/26/17 19:45 79 20 99 Nasal Cannula 2.0 28 11/26/17 19:30 75 20 97 Nasal Cannula 2.0 28 11/26/17 19:30 75 16 Nasal Cannula 2.0 28 11/26/17 16:30 Nasal Cannula 11/26/17 16:00 56 11/26/17 16:00 97.5 67 20 154/79 96 Nasal Cannula 3.0 97.5 Intake and Output 11/26/17 11/27/17 19:00 07:00 Intake Total 640 ml 200 ml Output Total 1000 ml Balance 640 ml -800 ml Intake Oral 290 ml 200 ml IV Total 350 ml Output Hemodialysis UF 1000 ml Laboratory Tests 11/26/17 18:15: Haptoglobin [Pending], Fibrinogen 558H, Homocystine 22.2H 11/27/17 07:45: White Blood Count 8.3, Red Blood Count 3.55L, Hemoglobin 10.3L, Hematocrit 30.7L , Mean Corpuscular Volume 86, Mean Corpuscular Hemoglobin 29.0, Mean Corpuscular Hemoglobin Concent 33.6, Red Cell Distribution Width 14.3, Platelet Count 194, Mean Platelet Volume 7.7, Neutrophils (%) (Auto) 80.3H, Lymphocytes ( %) (Auto) 9.8L, Monocytes (%) (Auto) 9.4, Eosinophils (%) (Auto) 0.2, Basophils (%) (Auto) 0.2, Sodium Level 133L, Potassium Level 3.5, Chloride Level 92L, Carbon Dioxide Level 33H, Anion Gap 8, Blood Urea Nitrogen 33H, Creatinine 6.5H , Estimat Glomerular Filtration Rate , Glucose Level 161H, Hemoglobin A1c 7.8H, Calcium Level 8.7, Troponin I 0.148H, Thyroid Stimulating Hormone (TSH) 1.467 Height (Feet): 5 Height (Inches): 4.00 Weight (Pounds): 179 General Appearance: lethargic EENT: normal ENT inspection Neck: normal alignment Cardiovascular: normal peripheral pulses, normal rate, regular rhythm Respiratory/Chest: decreased breath sounds Abdomen: normal bowel sounds, non tender, soft Extremities: normal inspection Edema: no edema noted Arm (L), no edema noted Arm (R), no edema noted Leg (L), no edema noted Leg (R), no edema noted Pedal (L), no edema noted Pedal (R), no edema noted Generalized Neurologic: motor weakness Skin: normal pigmentation, warm/dry PEDRO LUIS CALDERÓN Nov 27, 2017 14:25
[2017-11-27] MEDS: Docusate 100mg cap ORAL SCH (17:56)
--- NOTE | 2017-11-27 18:50 | Nephrology Progress Note ---
Assessment/Plan Assessment 1. Hypovolemic hyponatremia. 2. Hypokalemia. 3. End-stage renal disease. 4. Anemia of chronic kidney disease. 5. Renal osteodystrophy. 6. Hypertension. Plan dialysis in am monitoring PTH,phos monitoring H&H Replace electrolyte as need it Subjective Constitutional: Reports: malaise, weakness HEENT: Reports: no symptoms Genitourinary: Reports: no symptoms Neurologic/Psychiatric: Reports: no symptoms Subjective feeling better had dialysis yesterday Objective Objective Last 24 Hour Vital Signs Date Time Temp Pulse Resp B/P (MAP) Pulse Ox O2 Delivery O2 Flow Rate FiO2 11/27/17 16:00 88 11/27/17 14:30 74 20 99 Nasal Cannula 2.0 28 11/27/17 13:47 71 20 97 Nasal Cannula 2.0 28 11/27/17 12:00 97.7 83 18 144/65 99 Nasal Cannula 3.0 97.7 11/27/17 12:00 73 11/27/17 08:20 74 20 99 Nasal Cannula 2.0 28 11/27/17 08:00 97.9 82 18 143/81 95 Nasal Cannula 3.0 97.9 11/27/17 08:00 77 11/27/17 07:50 71 20 96 Nasal Cannula 2.0 28 11/27/17 07:50 Nasal Cannula 2.0 28 11/27/17 07:50 94 Nasal Cannula 2.0 28 11/27/17 04:00 72 11/27/17 00:00 98.2 84 18 162/91 97 Nasal Cannula 3.0 98.2 11/27/17 00:00 76 11/26/17 20:48 75 16 Nasal Cannula 2.0 28 11/26/17 20:00 85 11/26/17 20:00 95 Nasal Cannula 2.0 28 11/26/17 20:00 99.3 81 20 155/56 97 Nasal Cannula 3.0 99.3 11/26/17 20:00 Nasal Cannula 2.0 28 11/26/17 19:47 Nasal Cannula 11/26/17 19:45 79 20 99 Nasal Cannula 2.0 28 11/26/17 19:30 75 20 97 Nasal Cannula 2.0 28 11/26/17 19:30 75 16 Nasal Cannula 2.0 28 Intake and Output 11/26/17 11/27/17 19:00 07:00 Intake Total 640 ml 200 ml Output Total 1000 ml Balance 640 ml -800 ml Intake Oral 290 ml 200 ml IV Total 350 ml Output Hemodialysis UF 1000 ml Laboratory Tests 11/27/17 07:45: White Blood Count 8.3, Red Blood Count 3.55L, Hemoglobin 10.3L, Hematocrit 30.7L , Mean Corpuscular Volume 86, Mean Corpuscular Hemoglobin 29.0, Mean Corpuscular Hemoglobin Concent 33.6, Red Cell Distribution Width 14.3, Platelet Count 194, Mean Platelet Volume 7.7, Neutrophils (%) (Auto) 80.3H, Lymphocytes ( %) (Auto) 9.8L, Monocytes (%) (Auto) 9.4, Eosinophils (%) (Auto) 0.2, Basophils (%) (Auto) 0.2, Sodium Level 133L, Potassium Level 3.5, Chloride Level 92L, Carbon Dioxide Level 33H, Anion Gap 8, Blood Urea Nitrogen 33H, Creatinine 6.5H , Estimat Glomerular Filtration Rate , Glucose Level 161H, Hemoglobin A1c 7.8H, Calcium Level 8.7, Troponin I 0.148H, Thyroid Stimulating Hormone (TSH) 1.467 Height (Feet): 5 Height (Inches): 4.00 Weight (Pounds): 179 Objective HEAD AND NECK: No JVP. No LAD. No thyromegaly. Extraocular movement intact. Pupils are reactive to light and accommodation. LUNGS: Clear to auscultation. CARDIAC: Regular rate and rhythm. S1 and S2. No murmur. No rub. ABDOMEN: Soft, nontender, and nondistended. EXTREMITIES: Trace edema. No clubbing. No cyanosis. CLAYTON TRUONG Nov 27, 2017 18:50
--- NOTE | 2017-11-27 19:19 | Cardiology Progress Note ---
Assessment/Plan Assessment/Plan 1. Slight elevation of troponin-I level, no wall motion abnormalities, Troponin- I rise is plateaued and not quite representing acute plaque rupture, continue medical therapy including beta-ilda, high-intensity statins, and aspirin. 2. Atrial fibrillation, continue Apixaban twice daily, high risk for cerebrovascular accident given very high CHADS-Vasc score. 3. History of congestive heart failure. No e/o heart failure per echo data. Subjective Cardiovascular: Reports: no symptoms Respiratory: Reports: cough, shortness of breath Gastrointestinal/Abdominal: Reports: vomiting Subjective Sinus rhythm at 75. Objective Last 24 Hour Vital Signs Date Time Temp Pulse Resp B/P (MAP) Pulse Ox O2 Delivery O2 Flow Rate FiO2 11/27/17 16:00 88 11/27/17 14:30 74 20 99 Nasal Cannula 2.0 28 11/27/17 13:47 71 20 97 Nasal Cannula 2.0 28 11/27/17 12:00 97.7 83 18 144/65 99 Nasal Cannula 3.0 97.7 11/27/17 12:00 73 11/27/17 08:20 74 20 99 Nasal Cannula 2.0 28 11/27/17 08:00 97.9 82 18 143/81 95 Nasal Cannula 3.0 97.9 11/27/17 08:00 77 11/27/17 07:50 71 20 96 Nasal Cannula 2.0 28 11/27/17 07:50 Nasal Cannula 2.0 28 11/27/17 07:50 94 Nasal Cannula 2.0 28 11/27/17 04:00 72 11/27/17 00:00 98.2 84 18 162/91 97 Nasal Cannula 3.0 98.2 11/27/17 00:00 76 11/26/17 20:48 75 16 Nasal Cannula 2.0 28 11/26/17 20:00 85 11/26/17 20:00 95 Nasal Cannula 2.0 28 11/26/17 20:00 99.3 81 20 155/56 97 Nasal Cannula 3.0 99.3 11/26/17 20:00 Nasal Cannula 2.0 28 11/26/17 19:47 Nasal Cannula 11/26/17 19:45 79 20 99 Nasal Cannula 2.0 28 11/26/17 19:30 75 20 97 Nasal Cannula 2.0 28 11/26/17 19:30 75 16 Nasal Cannula 2.0 28 Intake and Output 11/26/17 11/27/17 19:00 07:00 Intake Total 640 ml 200 ml Output Total 1000 ml Balance 640 ml -800 ml Intake Oral 290 ml 200 ml IV Total 350 ml Output Hemodialysis UF 1000 ml 2D Echo: LVEF 65%, RVSP 29 mmHg, Grade I lVDD Laboratory Tests Test 11/27/17 07:45 White Blood Count 8.3 K/UL (4.8-10.8) Red Blood Count 3.55 M/UL (4.20-5.40) L Hemoglobin 10.3 G/DL (12.0-16.0) L Hematocrit 30.7 % (37.0-47.0) L Mean Corpuscular Volume 86 FL (80-99) Mean Corpuscular Hemoglobin 29.0 PG (27.0-31.0) Mean Corpuscular Hemoglobin Concent 33.6 G/DL (32.0-36.0) Red Cell Distribution Width 14.3 % (11.6-14.8) Platelet Count 194 K/UL (150-450) Mean Platelet Volume 7.7 FL (6.5-10.1) Neutrophils (%) (Auto) 80.3 % (45.0-75.0) H Lymphocytes (%) (Auto) 9.8 % (20.0-45.0) L Monocytes (%) (Auto) 9.4 % (1.0-10.0) Eosinophils (%) (Auto) 0.2 % (0.0-3.0) Basophils (%) (Auto) 0.2 % (0.0-2.0) Sodium Level 133 MMOL/L (136-145) L Potassium Level 3.5 MMOL/L (3.5-5.1) Chloride Level 92 MMOL/L (98-107) L Carbon Dioxide Level 33 MMOL/L (21-32) H Anion Gap 8 mmol/L (5-15) Blood Urea Nitrogen 33 mg/dL (7-18) H Creatinine 6.5 MG/DL (0.55-1.30) H Estimat Glomerular Filtration Rate mL/min (>60) Glucose Level 161 MG/DL (74-106) H Hemoglobin A1c 7.8 % (4.3-6.0) H Calcium Level 8.7 MG/DL (8.5-10.1) Troponin I 0.148 ng/mL (0.000-0.056) Thyroid Stimulating Hormone (TSH) 1.467 uiU/mL (0.358-3.740) Microbiology Date/Time Source Procedure Growth Status 11/25/17 14:55 Blood Blood Culture - Preliminary NO GROWTH AFTER 24 HOURS Resulted 11/25/17 14:30 Blood Blood Culture - Preliminary NO GROWTH AFTER 24 HOURS Resulted 11/25/17 16:40 Nasal Nares Left MRSA Culture - Final NO METHICILLIN RESISTANT STAPH AUREUS... Complete 11/25/17 13:00 Nasal Nares Influenza Types A,B Antigen (MATHIEU) - Final Complete 11/25/17 16:40 Rectum VRE Culture - Final NO VANCOMYCIN RESISTANT ENTEROCOCCUS ... Complete Objective HEENT: Atraumatic and normocephalic. ENT, pupils are equal, round, and reactive to light and accommodation. Extraocular muscles intact. NECK: JVP is less than 5 cm. No carotid bruits. Carotid upstroke is 2+ bilaterally. CARDIOVASCULAR: Normal S1 and S2. Regular rate and rhythm. No murmurs, gallops, or rubs. PMI is at fourth intercostal space in the midclavicular line. Presence of a pacemaker pocket in the right pectoral area. LUNGS: Clear to auscultation bilaterally. ABDOMEN: Soft, nontender, and nondistended. No hepatosplenomegaly. Positive bowel sounds. EXTREMITIES: No evidence of edema, clubbing, or cyanosis. MADELINE MCCAIN Nov 27, 2017 19:18
[2017-11-27 20:00] VITALS: BP 162/112
[2017-11-27] MEDS: Atorvastatin 20mg tab ORAL SCH (20:36)
[2017-11-28] VITALS (8 sets, daily range): BP systolic 114–177; BP diastolic 62–111
[2017-11-28] MEDS: Levothyroxine 25mcg tab ORAL SCH (06:35)
[2017-11-28] MEDS: NovoLOG Insulin Flexpen SUBQ SCH ×4 (06:36→23:12)
[2017-11-28 07:19] LABS: BASOPHILS % (AUTO) 0.3 % (0.0-2.0); EOSINOPHILS % (AUTO) 0.1 % (0.0-3.0); HEMATOCRIT 32.4 % (37.0-47.0); HEMOGLOBIN 11.1 G/DL (12.0-16.0); LYMPHOCYTES % (AUTO) 6.7 % (20.0-45.0); MEAN CORPUSCULAR VOLUME 86 FL (80-99); MONOCYTES % (AUTO) 8.4 % (1.0-10.0); NEUTROPHILS % (AUTO) 84.5 % (45.0-75.0); PLATELET COUNT 225 K/UL (150-450); RED BLOOD COUNT 3.78 M/UL (4.20-5.40); WHITE BLOOD COUNT 11.1 K/UL (4.8-10.8)
[2017-11-28 07:36] LABS: ALANINE AMINOTRANSFERASE 16 U/L (12-78); ALBUMIN 2.8 G/DL (3.4-5.0); ALBUMIN/GLOBULIN RATIO 0.7 (1.0-2.7); ALKALINE PHOSPHATASE 95 U/L (46-116); ANION GAP 10 mmol/L (5-15); ASPARTATE AMINO TRANSFERASE 28 U/L (15-37); BILIRUBIN,TOTAL 1.3 MG/DL (0.2-1.0); BLOOD UREA NITROGEN 43 mg/dL (7-18); CALCIUM 9.1 MG/DL (8.5-10.1); CARBON DIOXIDE 31 MMOL/L (21-32); CHLORIDE 86 MMOL/L (98-107); POTASSIUM 3.9 MMOL/L (3.5-5.1); SODIUM 127 MMOL/L (136-145)
[2017-11-28 07:43] LABS: BILIRUBIN,DIRECT 0.4 MG/DL (0.0-0.3)
[2017-11-28] MEDS: Albuterol/Ipratropium 3ml neb INH SCH ×3 (07:46→19:25)
--- NOTE | 2017-11-28 08:57 | Nephrology Progress Note ---
Assessment/Plan Assessment 1. Hypovolemic hyponatremia. 2. Hypokalemia. 3. End-stage renal disease. 4. Anemia of chronic kidney disease. 5. Renal osteodystrophy. 6. Hypertension. Plan dialysis today UF as tolerated monitoring PTH,phos monitoring H&H Replace electrolyte as need it Subjective Constitutional: Reports: no symptoms, malaise, weakness Subjective c/o sob daughter is in her bedside she is able to sit in the bed with physical therapy Objective Objective Last 24 Hour Vital Signs Date Time Temp Pulse Resp B/P (MAP) Pulse Ox O2 Delivery O2 Flow Rate FiO2 11/28/17 08:16 97.7 89 19 168/96 97 Nasal Cannula 3.0 97.7 11/28/17 07:52 71 18 98 Nasal Cannula 2.0 28 11/28/17 07:46 96 Nasal Cannula 2.0 28 11/28/17 07:46 Nasal Cannula 2.0 28 11/28/17 07:46 70 18 98 Nasal Cannula 2.0 28 11/28/17 04:00 97.0 104 22 138/111 97 Nasal Cannula 3.0 97.0 11/28/17 04:00 94 11/28/17 00:00 97.7 98 22 163/90 97 Nasal Cannula 3.0 97.7 11/28/17 00:00 94 11/27/17 21:13 95 Nasal Cannula 2.0 28 11/27/17 21:13 Nasal Cannula 2.0 28 11/27/17 20:49 75 20 96 Nasal Cannula 2.0 28 11/27/17 20:39 73 24 96 Nasal Cannula 2.0 28 11/27/17 20:00 98.1 75 22 162/112 99 Nasal Cannula 3.0 98.1 11/27/17 20:00 82 11/27/17 16:00 88 11/27/17 14:30 74 20 99 Nasal Cannula 2.0 28 11/27/17 13:47 71 20 97 Nasal Cannula 2.0 28 11/27/17 12:00 97.7 83 18 144/65 99 Nasal Cannula 3.0 97.7 11/27/17 12:00 73 Intake and Output 11/27/17 11/28/17 19:00 07:00 Intake Total 420 ml 300 ml Balance 420 ml 300 ml Intake Oral 420 ml 300 ml # Voids 1 Laboratory Tests 11/28/17 06:20: White Blood Count 11.1H, Red Blood Count 3.78L, Hemoglobin 11.1L, Hematocrit 32.4L, Mean Corpuscular Volume 86, Mean Corpuscular Hemoglobin 29.3, Mean Corpuscular Hemoglobin Concent 34.2, Red Cell Distribution Width 14.0, Platelet Count 225, Mean Platelet Volume 7.3, Neutrophils (%) (Auto) 84.5H, Lymphocytes ( %) (Auto) 6.7L, Monocytes (%) (Auto) 8.4, Eosinophils (%) (Auto) 0.1, Basophils (%) (Auto) 0.3, Sodium Level 127L, Potassium Level 3.9, Chloride Level 86L, Carbon Dioxide Level 31, Anion Gap 10, Blood Urea Nitrogen 43H, Creatinine 8.0H , Estimat Glomerular Filtration Rate , Glucose Level 147H, Calcium Level 9.1, Total Bilirubin 1.3H, Direct Bilirubin 0.4H, Aspartate Amino Transf (AST/SGOT) 28, Alanine Aminotransferase (ALT/SGPT) 16, Alkaline Phosphatase 95, Troponin I 0.136H, Pro-B-Type Natriuretic Peptide 82960O, Total Protein 7.0, Albumin 2.8L, Globulin 4.2, Albumin/Globulin Ratio 0.7L Height (Feet): 5 Height (Inches): 4.00 Weight (Pounds): 184 Objective HEAD AND NECK: No JVP. No LAD. No thyromegaly. Extraocular movement intact. Pupils are reactive to light and accommodation. LUNGS: Clear to auscultation. CARDIAC: Regular rate and rhythm. S1 and S2. No murmur. No rub. ABDOMEN: Soft, nontender, and nondistended. EXTREMITIES: Trace edema. No clubbing. No cyanosis. CLAYTON TRUONG Nov 28, 2017 08:57
[2017-11-28] MEDS: Renvela 2400 mg pkt ORAL SCH ×3 (09:17→18:00)
[2017-11-28] MEDS: Docusate 100mg cap ORAL SCH ×3 (09:17→18:00)
[2017-11-28] MEDS: Dronabinol 2.5mg Cap ORAL SCH (09:18)
[2017-11-28] MEDS: Benzonatate 100mg Perles ORAL SCH ×3 (09:18→18:00)
[2017-11-28] MEDS: Eliquis 2.5mg tablet ORAL SCH ×2 (09:18→18:00)
[2017-11-28] MEDS: Sennosides 8.6mg ORAL SCH (09:18)
--- NOTE | 2017-11-28 09:27 | General Progress Note ---
Assessment/Plan Assessment/Plan 1. Anemia due to underlying chronic disease. --> Continue to closely monitor. --> Anemia workup reviewed. Ferritin 2833, Vit B12 1057 --> Transfuse if hgb <7 or symptomatic. 2. Anemia due to underlying kidney disease. --> Continue to closely monitor. --> Patient ongoing Hemodialysis as needed. 3. Hypokalemia. Replace potassium as needed. 4. Hyponatremia. Consider Nephrology evaluation. 5. Altered mental status. The patient to be seen by Neurology, Dr. King. 6. Lactic acidosis. Rule out infection. 7. End-stage renal disease, on hemodialysis. Subjective Date patient seen: Nov 27, 2017 Constitutional: Denies: no symptoms, chills, diaphoresis, fever, malaise, weakness, other HEENT: Denies: no symptoms, eye pain, blurred vision, tearing, double vision, ear pain, ear discharge, nose pain, nose congestion, throat pain, throat swelling, mouth pain, mouth swelling, other Cardiovascular: Denies: no symptoms, chest pain, edema, irregular heart rate, lightheadedness, palpitations, syncope, other Respiratory: Denies: no symptoms, cough, orthopnea, shortness of breath, SOB with excertion, SOB at rest, sputum, stridor, wheezing, other Gastrointestinal/Abdominal: Denies: no symptoms, abdomen distended, abdominal pain, black stools, tarry stools, blood in stool, constipated, diarrhea, difficulty swallowing, nausea, poor appetite, poor fluid intake, rectal bleeding , vomiting, other Genitourinary: Denies: no symptoms, burning, discharge, frequency, flank pain, hematuria, incontinence, pain, urgency, other Neurologic/Psychiatric: Denies: no symptoms, anxiety, depressed, emotional problems, headache, numbness, paresthesia, pre-existing deficit, seizure, tingling, tremors, weakness, other Hematologic/Lymphatic: Reports: anemia Allergies: Coded Allergies: AZITHROMYCIN (Verified Allergy, Unknown, 11/25/17) WARFARIN (Verified Allergy, Unknown, 11/25/17) Subjective On HD. H/H stable. NAD. Objective Last 24 Hour Vital Signs Date Time Temp Pulse Resp B/P (MAP) Pulse Ox O2 Delivery O2 Flow Rate FiO2 11/28/17 08:16 97.7 89 19 168/96 97 Nasal Cannula 3.0 97.7 2/22/18 07:52 71 18 98 Nasal Cannula 2.0 28 11/28/17 07:46 96 Nasal Cannula 2.0 28 11/28/17 07:46 Nasal Cannula 2.0 28 11/28/17 07:46 70 18 98 Nasal Cannula 2.0 28 11/28/17 04:00 97.0 104 22 138/111 97 Nasal Cannula 3.0 97.0 11/28/17 04:00 94 11/28/17 00:00 97.7 98 22 163/90 97 Nasal Cannula 3.0 97.7 11/28/17 00:00 94 11/27/17 21:13 95 Nasal Cannula 2.0 28 11/27/17 21:13 Nasal Cannula 2.0 28 11/27/17 20:49 75 20 96 Nasal Cannula 2.0 28 11/27/17 20:39 73 24 96 Nasal Cannula 2.0 28 11/27/17 20:00 98.1 75 22 162/112 99 Nasal Cannula 3.0 98.1 11/27/17 20:00 82 11/27/17 16:00 88 11/27/17 14:30 74 20 99 Nasal Cannula 2.0 28 11/27/17 13:47 71 20 97 Nasal Cannula 2.0 28 11/27/17 12:00 97.7 83 18 144/65 99 Nasal Cannula 3.0 97.7 11/27/17 12:00 73 Intake and Output 11/27/17 11/28/17 19:00 07:00 Intake Total 420 ml 300 ml Balance 420 ml 300 ml Intake Oral 420 ml 300 ml # Voids 1 Laboratory Tests 11/28/17 06:20: White Blood Count 11.1H, Red Blood Count 3.78L, Hemoglobin 11.1L, Hematocrit 32.4L, Mean Corpuscular Volume 86, Mean Corpuscular Hemoglobin 29.3, Mean Corpuscular Hemoglobin Concent 34.2, Red Cell Distribution Width 14.0, Platelet Count 225, Mean Platelet Volume 7.3, Neutrophils (%) (Auto) 84.5H, Lymphocytes ( %) (Auto) 6.7L, Monocytes (%) (Auto) 8.4, Eosinophils (%) (Auto) 0.1, Basophils (%) (Auto) 0.3, Sodium Level 127L, Potassium Level 3.9, Chloride Level 86L, Carbon Dioxide Level 31, Anion Gap 10, Blood Urea Nitrogen 43H, Creatinine 8.0H , Estimat Glomerular Filtration Rate , Glucose Level 147H, Calcium Level 9.1, Total Bilirubin 1.3H, Direct Bilirubin 0.4H, Aspartate Amino Transf (AST/SGOT) 28, Alanine Aminotransferase (ALT/SGPT) 16, Alkaline Phosphatase 95, Troponin I 0.136H, Pro-B-Type Natriuretic Peptide 68717U, Total Protein 7.0, Albumin 2.8L, Globulin 4.2, Albumin/Globulin Ratio 0.7L Height (Feet): 5 Height (Inches): 4.00 Weight (Pounds): 184 Judd Figueroa Nov 28, 2017 09:27
--- NOTE | 2017-11-28 13:32 | Pulmonology Progress Note ---
Assessment/Plan Problems: (1) Nausea & vomiting (2) ESRF (end stage renal failure) (3) CHF (congestive heart failure) (4) A-fib (5) Pacemaker (6) Failure to thrive in adult Assessment/Plan sleeping wbc slighly higher, no SOB titrate fio2 to sat of 92% HR controlled HD as per nephrology, dialyzed yesterday. Subjective ROS Limited/Unobtainable: No Interval Events: didn't sleep much last night. Allergies: Coded Allergies: AZITHROMYCIN (Verified Allergy, Unknown, 11/25/17) WARFARIN (Verified Allergy, Unknown, 11/25/17) Objective Last 24 Hour Vital Signs Date Time Temp Pulse Resp B/P (MAP) Pulse Ox O2 Delivery O2 Flow Rate FiO2 11/28/17 12:00 97.0 89 19 146/69 97 Nasal Cannula 3.0 97.0 11/28/17 11:51 72 16 98 Room Air 21 11/28/17 11:42 72 16 96 Room Air 21 11/28/17 08:16 97.7 89 19 168/96 97 Nasal Cannula 3.0 97.7 11/28/17 07:52 71 18 98 Nasal Cannula 2.0 28 11/28/17 07:46 96 Nasal Cannula 2.0 28 11/28/17 07:46 Nasal Cannula 2.0 28 11/28/17 07:46 70 18 98 Nasal Cannula 2.0 28 11/28/17 04:00 97.0 104 22 138/111 97 Nasal Cannula 3.0 97.0 11/28/17 04:00 94 11/28/17 00:00 97.7 98 22 163/90 97 Nasal Cannula 3.0 97.7 11/28/17 00:00 94 11/27/17 21:13 95 Nasal Cannula 2.0 28 11/27/17 21:13 Nasal Cannula 2.0 28 11/27/17 20:49 75 20 96 Nasal Cannula 2.0 28 11/27/17 20:39 73 24 96 Nasal Cannula 2.0 28 11/27/17 20:00 98.1 75 22 162/112 99 Nasal Cannula 3.0 98.1 11/27/17 20:00 82 11/27/17 16:00 88 11/27/17 14:30 74 20 99 Nasal Cannula 2.0 28 11/27/17 13:47 71 20 97 Nasal Cannula 2.0 28 Intake and Output 11/27/17 11/28/17 19:00 07:00 Intake Total 420 ml 300 ml Balance 420 ml 300 ml Intake Oral 420 ml 300 ml # Voids 1 Objective General Appearance: sleepy Lines, tubes and drains: peripheral HEENT: normocephalic, atraumatic, anicteric, mucous membranes moist Neck: non-tender, normal alignment, supple Respiratory/Chest: lungs clear, other - R chest pacemaker Cardiovascular/Chest: no JVD, irregularly irregular - A fib paced, other - LUE AV shunt + bruit/thrill Abdomen: normal bowel sounds, non tender, soft Extremities: non-tender Skin Exam: warm/dry Neurologic: alert, oriented x 3, responsive Musculoskeletal: normal muscle bulk Microbiology Date/Time Source Procedure Growth Status 11/25/17 14:55 Blood Blood Culture - Preliminary NO GROWTH AFTER 48 HOURS Resulted 11/25/17 14:30 Blood Blood Culture - Preliminary NO GROWTH AFTER 48 HOURS Resulted 11/25/17 16:40 Nasal Nares Left MRSA Culture - Final NO METHICILLIN RESISTANT STAPH AUREUS... Complete 11/25/17 16:40 Rectum VRE Culture - Final NO VANCOMYCIN RESISTANT ENTEROCOCCUS ... Complete Laboratory Tests 11/28/17 06:20: White Blood Count 11.1H, Red Blood Count 3.78L, Hemoglobin 11.1L, Hematocrit 32.4L, Mean Corpuscular Volume 86, Mean Corpuscular Hemoglobin 29.3, Mean Corpuscular Hemoglobin Concent 34.2, Red Cell Distribution Width 14.0, Platelet Count 225, Mean Platelet Volume 7.3, Neutrophils (%) (Auto) 84.5H, Lymphocytes ( %) (Auto) 6.7L, Monocytes (%) (Auto) 8.4, Eosinophils (%) (Auto) 0.1, Basophils (%) (Auto) 0.3, Sodium Level 127L, Potassium Level 3.9, Chloride Level 86L, Carbon Dioxide Level 31, Anion Gap 10, Blood Urea Nitrogen 43H, Creatinine 8.0H , Estimat Glomerular Filtration Rate , Glucose Level 147H, Calcium Level 9.1, Total Bilirubin 1.3H, Direct Bilirubin 0.4H, Aspartate Amino Transf (AST/SGOT) 28, Alanine Aminotransferase (ALT/SGPT) 16, Alkaline Phosphatase 95, Troponin I 0.136H, Pro-B-Type Natriuretic Peptide 95899Z, Total Protein 7.0, Albumin 2.8L, Globulin 4.2, Albumin/Globulin Ratio 0.7L Current Medications Medications (Trade) Dose Ordered Sig/Keeley Route PRN Reason Start Time Stop Time Status Last Admin Dose Admin Acetaminophen (Tylenol) 650 mg Q4H PRN ORAL T>100.5/ mild pain 11/27/17 21:30 12/27/17 21:29 11/27/17 18:01 Albuterol/ Ipratropium (Albuterol/ Ipratropium) 3 ml Q4H PRN HHN Shortness of Breath 11/25/17 17:30 11/30/17 17:29 11/26/17 05:22 Albuterol/ Ipratropium (Albuterol/ Ipratropium) 3 ml TIDRT INH 11/26/17 19:00 12/01/17 18:59 11/28/17 11:42 Apixaban (Eliquis) 5 mg BID ORAL 11/25/17 18:00 12/25/17 17:59 11/28/17 09:18 Atorvastatin Calcium (Lipitor) 40 mg BEDTIME ORAL 11/25/17 21:00 12/25/17 20:59 11/27/17 20:36 Benzonatate (Tessalon Perles) 100 mg THREE TIMES A DAY ORAL 11/26/17 18:00 12/26/17 17:59 11/28/17 09:18 Dextrose (Dextrose 50%) STAT PRN IV Hypoglycemia 11/25/17 17:30 12/25/17 17:29 Docusate Sodium (Colace) 100 mg THREE TIMES A DAY ORAL 11/27/17 18:00 12/27/17 17:59 11/28/17 09:17 Dronabinol (Marinol) 2.5 mg DAILY ORAL 11/27/17 14:00 12/27/17 13:59 11/28/17 09:18 Guaifenesin/ Dextromethorphan (Robitussin DM Syrup) 10 ml Q6H PRN ORAL For Cough 11/26/17 11:30 12/26/17 11:29 11/26/17 12:12 Insulin Aspart (NovoLOG) BEFORE MEALS AND HS SUBQ 11/26/17 16:30 12/26/17 16:29 11/28/17 11:40 Levothyroxine Sodium (Synthroid) 25 mcg DAILY@0630 ORAL 11/26/17 06:30 12/26/17 06:29 11/28/17 06:35 Levothyroxine Sodium (Synthroid) 112 mcg DAILY@0630 ORAL 11/26/17 06:30 12/26/17 06:29 11/28/17 06:35 Nitroglycerin (Ntg) 0.4 mg Q5M PRN SL Prn Chest Pain 11/26/17 10:00 12/26/17 09:59 11/26/17 14:23 Ondansetron HCl (Zofran) 4 mg Q6H PRN IVP Nausea & Vomiting 11/25/17 17:30 12/25/17 17:29 11/27/17 18:03 Polyethylene Glycol (Miralax) 17 gm DAILYPRN PRN ORAL Constipation 11/25/17 17:30 12/25/17 17:29 Sennosides (Senokot) 1 tab DAILY ORAL 11/27/17 13:15 12/27/17 13:14 11/28/17 09:18 Sevelamer Carbonate (Renvela) 2,400 mg TID ORAL 11/25/17 18:00 12/25/17 17:59 11/28/17 09:17 Temazepam (Restoril) 15 mg HSPRN PRN ORAL Insomnia 11/25/17 21:00 12/02/17 20:59 BETTINA DELUCA Nov 28, 2017 13:32
--- NOTE | 2017-11-28 14:30 | General Progress Note ---
Assessment/Plan Problem List: (1) Diabetes ICD Codes: E11.9 - Type 2 diabetes mellitus without complications SNOMED: 49221855 (2) Hypothyroid ICD Codes: E03.9 - Hypothyroidism, unspecified SNOMED: 73777430 (3) Renal failure ICD Codes: N19 - Unspecified kidney failure SNOMED: 37863183 Qualifiers: Qualified Codes: N18.6 - End stage renal disease; Z99.2 - Dependence on renal dialysis (4) Failure to thrive in adult ICD Codes: R62.7 - Adult failure to thrive SNOMED: 829247645 (5) CHF (congestive heart failure) ICD Codes: I50.9 - Heart failure, unspecified SNOMED: 25851967 (6) Pacemaker ICD Codes: Z95.0 - Presence of cardiac pacemaker SNOMED: 921356493 (7) ESRF (end stage renal failure) ICD Codes: N18.6 - End stage renal disease SNOMED: 68741244 Status: unchanged Assessment/Plan ot pt diet dialysis bp bs control cbc bmp am dc plan w hh Subjective Constitutional: Reports: weakness Allergies: Coded Allergies: AZITHROMYCIN (Verified Allergy, Unknown, 11/25/17) WARFARIN (Verified Allergy, Unknown, 11/25/17) All Systems: reviewed and negative except above Subjective o2nc calm Objective Last 24 Hour Vital Signs Date Time Temp Pulse Resp B/P (MAP) Pulse Ox O2 Delivery O2 Flow Rate FiO2 11/28/17 12:00 86 11/28/17 12:00 97.0 89 19 146/69 97 Nasal Cannula 3.0 97.0 11/28/17 11:51 72 16 98 Room Air 21 11/28/17 11:42 72 16 96 Room Air 21 11/28/17 08:16 97.7 89 19 168/96 97 Nasal Cannula 3.0 97.7 11/28/17 08:00 104 11/28/17 07:52 71 18 98 Nasal Cannula 2.0 28 11/28/17 07:46 96 Nasal Cannula 2.0 28 11/28/17 07:46 Nasal Cannula 2.0 28 11/28/17 07:46 70 18 98 Nasal Cannula 2.0 28 11/28/17 04:00 97.0 104 22 138/111 97 Nasal Cannula 3.0 97.0 11/28/17 04:00 94 11/28/17 00:00 97.7 98 22 163/90 97 Nasal Cannula 3.0 97.7 11/28/17 00:00 94 11/27/17 21:13 95 Nasal Cannula 2.0 28 11/27/17 21:13 Nasal Cannula 2.0 28 11/27/17 20:49 75 20 96 Nasal Cannula 2.0 28 11/27/17 20:39 73 24 96 Nasal Cannula 2.0 28 11/27/17 20:00 98.1 75 22 162/112 99 Nasal Cannula 3.0 98.1 11/27/17 20:00 82 11/27/17 16:00 88 Intake and Output 11/27/17 11/28/17 19:00 07:00 Intake Total 420 ml 300 ml Balance 420 ml 300 ml Intake Oral 420 ml 300 ml # Voids 1 Laboratory Tests 11/28/17 06:20: White Blood Count 11.1H, Red Blood Count 3.78L, Hemoglobin 11.1L, Hematocrit 32.4L, Mean Corpuscular Volume 86, Mean Corpuscular Hemoglobin 29.3, Mean Corpuscular Hemoglobin Concent 34.2, Red Cell Distribution Width 14.0, Platelet Count 225, Mean Platelet Volume 7.3, Neutrophils (%) (Auto) 84.5H, Lymphocytes ( %) (Auto) 6.7L, Monocytes (%) (Auto) 8.4, Eosinophils (%) (Auto) 0.1, Basophils (%) (Auto) 0.3, Sodium Level 127L, Potassium Level 3.9, Chloride Level 86L, Carbon Dioxide Level 31, Anion Gap 10, Blood Urea Nitrogen 43H, Creatinine 8.0H , Estimat Glomerular Filtration Rate , Glucose Level 147H, Calcium Level 9.1, Total Bilirubin 1.3H, Direct Bilirubin 0.4H, Aspartate Amino Transf (AST/SGOT) 28, Alanine Aminotransferase (ALT/SGPT) 16, Alkaline Phosphatase 95, Troponin I 0.136H, Pro-B-Type Natriuretic Peptide 41655C, Total Protein 7.0, Albumin 2.8L, Globulin 4.2, Albumin/Globulin Ratio 0.7L Height (Feet): 5 Height (Inches): 4.00 Weight (Pounds): 184 General Appearance: lethargic EENT: normal ENT inspection Neck: normal alignment Cardiovascular: normal peripheral pulses, normal rate, regular rhythm Respiratory/Chest: decreased breath sounds Abdomen: normal bowel sounds, non tender, soft Extremities: normal inspection Edema: no edema noted Arm (L), no edema noted Arm (R), no edema noted Leg (L), no edema noted Leg (R), no edema noted Pedal (L), no edema noted Pedal (R), no edema noted Generalized Neurologic: motor weakness Skin: normal pigmentation, warm/dry PEDRO LUIS CALDERÓN Nov 28, 2017 14:30
[2017-11-28] MEDS ORDERED: Nitroglycerin Subl 0.4mg tab SL PRN (18:00)
[2017-11-28] MEDS ORDERED: Albuterol/Ipratropium 3ml neb HHN PRN (18:00)
[2017-11-28] MEDS ORDERED: Guaifenesin/DM 10ml syrup ORAL PRN (18:00)
[2017-11-28] MEDS ORDERED: Miralax 17gm pkt ORAL PRN (18:00)
[2017-11-28] MEDS: Atorvastatin 20mg tab ORAL SCH (21:00)
--- NOTE | 2017-11-28 23:10 | General Progress Note ---
Assessment/Plan Status: stable Assessment/Plan 1. Anemia due to underlying chronic disease. --> H/H has been stable and blood transfusion not required. --> Continue to closely monitor. --> Anemia workup reviewed. Ferritin 2833, Vit B12 1057 --> Transfuse if hgb <7 or symptomatic. 2. Anemia due to underlying kidney disease. --> Continue to closely monitor. --> Patient ongoing Hemodialysis as needed. 3. Hypokalemia. Replace potassium as needed. 4. Hyponatremia. Consider Nephrology evaluation. 5. Altered mental status. The patient to be seen by Neurology, Dr. King. 6. Lactic acidosis. Rule out infection. 7. End-stage renal disease, on hemodialysis. Subjective Date patient seen: Nov 28, 2017 Constitutional: Denies: no symptoms, chills, diaphoresis, fever, malaise, weakness, other HEENT: Denies: no symptoms, eye pain, blurred vision, tearing, double vision, ear pain, ear discharge, nose pain, nose congestion, throat pain, throat swelling, mouth pain, mouth swelling, other Cardiovascular: Denies: no symptoms, chest pain, edema, irregular heart rate, lightheadedness, palpitations, syncope, other Respiratory: Denies: no symptoms, cough, orthopnea, shortness of breath, SOB with excertion, SOB at rest, sputum, stridor, wheezing, other Gastrointestinal/Abdominal: Denies: no symptoms, abdomen distended, abdominal pain, black stools, tarry stools, blood in stool, constipated, diarrhea, difficulty swallowing, nausea, poor appetite, poor fluid intake, rectal bleeding , vomiting, other Genitourinary: Denies: no symptoms, burning, discharge, frequency, flank pain, hematuria, incontinence, pain, urgency, other Hematologic/Lymphatic: Reports: anemia Allergies: Coded Allergies: AZITHROMYCIN (Verified Allergy, Unknown, 11/25/17) WARFARIN (Verified Allergy, Unknown, 11/25/17) Subjective No major events overnight. Stable. Objective Last 24 Hour Vital Signs Date Time Temp Pulse Resp B/P (MAP) Pulse Ox O2 Delivery O2 Flow Rate FiO2 11/28/17 20:00 97.7 88 20 148/75 99 Nasal Cannula 97.7 11/28/17 19:39 78 16 99 Nasal Cannula 2.0 28 2/22/18 19:26 Room Air 21 11/28/17 19:26 92 Room Air 21 11/28/17 19:25 79 18 92 Room Air 21 11/28/17 16:00 98.1 84 20 114/62 97 Nasal Cannula 3.0 98.1 11/28/17 12:00 86 11/28/17 12:00 97.0 89 19 146/69 97 Nasal Cannula 3.0 97.0 11/28/17 11:51 72 16 98 Room Air 21 11/28/17 11:42 72 16 96 Room Air 21 11/28/17 08:16 97.7 89 19 168/96 97 Nasal Cannula 3.0 97.7 11/28/17 08:00 104 11/28/17 07:52 71 18 98 Nasal Cannula 2.0 28 11/28/17 07:46 96 Nasal Cannula 2.0 28 11/28/17 07:46 Nasal Cannula 2.0 28 11/28/17 07:46 70 18 98 Nasal Cannula 2.0 28 11/28/17 04:00 97.0 104 22 138/111 97 Nasal Cannula 3.0 97.0 11/28/17 04:00 94 11/28/17 00:00 97.7 98 22 163/90 97 Nasal Cannula 3.0 97.7 11/28/17 00:00 94 Intake and Output 11/27/17 11/28/17 19:00 07:00 Intake Total 420 ml 300 ml Balance 420 ml 300 ml Intake Oral 420 ml 300 ml # Voids 1 Laboratory Tests 11/28/17 06:20: White Blood Count 11.1H, Red Blood Count 3.78L, Hemoglobin 11.1L, Hematocrit 32.4L, Mean Corpuscular Volume 86, Mean Corpuscular Hemoglobin 29.3, Mean Corpuscular Hemoglobin Concent 34.2, Red Cell Distribution Width 14.0, Platelet Count 225, Mean Platelet Volume 7.3, Neutrophils (%) (Auto) 84.5H, Lymphocytes ( %) (Auto) 6.7L, Monocytes (%) (Auto) 8.4, Eosinophils (%) (Auto) 0.1, Basophils (%) (Auto) 0.3, Sodium Level 127L, Potassium Level 3.9, Chloride Level 86L, Carbon Dioxide Level 31, Anion Gap 10, Blood Urea Nitrogen 43H, Creatinine 8.0H , Estimat Glomerular Filtration Rate , Glucose Level 147H, Calcium Level 9.1, Total Bilirubin 1.3H, Direct Bilirubin 0.4H, Aspartate Amino Transf (AST/SGOT) 28, Alanine Aminotransferase (ALT/SGPT) 16, Alkaline Phosphatase 95, Troponin I 0.136H, Pro-B-Type Natriuretic Peptide 29615C, Total Protein 7.0, Albumin 2.8L, Globulin 4.2, Albumin/Globulin Ratio 0.7L Height (Feet): 5 Height (Inches): 4.00 Weight (Pounds): 184 General Appearance: no apparent distress EENT: normal ENT inspection Neck: normal alignment Respiratory/Chest: chest wall non-tender, lungs clear Abdomen: non tender, soft Judd Figueroa Nov 28, 2017 23:10
[2017-11-29] VITALS: BP 125/72
[2017-11-29 04:00] VITALS: BP 120/72
[2017-11-29] MEDS: Levothyroxine 25mcg tab ORAL SCH (06:21)
[2017-11-29] MEDS: NovoLOG Insulin Flexpen SUBQ SCH ×4 (06:23→21:28)
[2017-11-29 06:32] LABS: BASOPHILS % (AUTO) 0.4 % (0.0-2.0); EOSINOPHILS % (AUTO) 0.2 % (0.0-3.0); HEMATOCRIT 30.6 % (37.0-47.0); HEMOGLOBIN 10.3 G/DL (12.0-16.0); LYMPHOCYTES % (AUTO) 5.6 % (20.0-45.0); MEAN CORPUSCULAR VOLUME 87 FL (80-99); MONOCYTES % (AUTO) 9.9 % (1.0-10.0); NEUTROPHILS % (AUTO) 83.9 % (45.0-75.0); PLATELET COUNT 247 K/UL (150-450); RED CELL DISTRIBUTION WIDTH 14.4 % (11.6-14.8); WHITE BLOOD COUNT 9.9 K/UL (4.8-10.8)
[2017-11-29] MEDS: Albuterol/Ipratropium 3ml neb INH SCH ×3 (07:01→20:42)
[2017-11-29 07:11] LABS: ANION GAP 11 mmol/L (5-15); BLOOD UREA NITROGEN 30 mg/dL (7-18); CALCIUM 9.3 MG/DL (8.5-10.1); CARBON DIOXIDE 26 MMOL/L (21-32); CHLORIDE 96 MMOL/L (98-107); POTASSIUM 4.5 MMOL/L (3.5-5.1); SODIUM 133 MMOL/L (136-145)
[2017-11-29 08:00] VITALS: BP 126/68
[2017-11-29] MEDS: Sennosides 8.6mg ORAL SCH (08:42)
[2017-11-29] MEDS: Eliquis 2.5mg tablet ORAL SCH ×2 (08:42→17:55)
[2017-11-29] MEDS: Benzonatate 100mg Perles ORAL SCH ×3 (08:43→17:54)
[2017-11-29] MEDS: Docusate 100mg cap ORAL SCH ×3 (08:43→17:54)
[2017-11-29] MEDS: Dronabinol 2.5mg Cap ORAL SCH (08:43)
[2017-11-29] MEDS: Renvela 2400 mg pkt ORAL SCH ×3 (08:49→17:55)
[2017-11-29 12:00] VITALS: BP 146/86
--- NOTE | 2017-11-29 12:17 | General Progress Note ---
Assessment/Plan Problem List: (1) Diabetes ICD Codes: E11.9 - Type 2 diabetes mellitus without complications SNOMED: 70779436 (2) Hypothyroid ICD Codes: E03.9 - Hypothyroidism, unspecified SNOMED: 36255396 (3) Renal failure ICD Codes: N19 - Unspecified kidney failure SNOMED: 01065642 Qualifiers: Qualified Codes: N18.6 - End stage renal disease; Z99.2 - Dependence on renal dialysis (4) Failure to thrive in adult ICD Codes: R62.7 - Adult failure to thrive SNOMED: 754409593 (5) CHF (congestive heart failure) ICD Codes: I50.9 - Heart failure, unspecified SNOMED: 84287657 (6) Pacemaker ICD Codes: Z95.0 - Presence of cardiac pacemaker SNOMED: 451599198 (7) ESRF (end stage renal failure) ICD Codes: N18.6 - End stage renal disease SNOMED: 93076363 Status: unchanged Assessment/Plan ot pt diet dialysis bp bs control cbc bmp am dc plan w hh Subjective Constitutional: Reports: weakness Respiratory: Reports: shortness of breath Allergies: Coded Allergies: AZITHROMYCIN (Verified Allergy, Unknown, 11/25/17) WARFARIN (Verified Allergy, Unknown, 11/25/17) All Systems: reviewed and negative except above Subjective o2nc calm Objective Last 24 Hour Vital Signs Date Time Temp Pulse Resp B/P (MAP) Pulse Ox O2 Delivery O2 Flow Rate FiO2 11/29/17 11:58 98 20 99 Room Air 21 11/29/17 11:48 96 18 96 Room Air 21 11/29/17 08:00 98.3 82 18 126/68 95 98.3 11/29/17 07:11 96 18 99 Room Air 21 11/29/17 07:01 94 16 98 Room Air 21 11/29/17 07:01 Room Air 21 11/29/17 07:01 98 Room Air 21 11/29/17 04:00 99 Nasal Cannula 3.0 11/29/17 04:00 99.0 84 20 120/72 93 Room Air 99.0 11/29/17 00:00 97 Nasal Cannula 3.0 11/29/17 00:00 98.8 93 20 125/72 97 Nasal Cannula 98.8 11/28/17 23:23 Nasal Cannula 2.0 2/22/18 23:18 99.0 90 24 177/71 Nasal Cannula 2.0 99.0 11/28/17 20:00 99 Nasal Cannula 3.0 11/28/17 20:00 97.7 88 20 148/75 99 Nasal Cannula 97.7 11/28/17 19:39 78 16 99 Nasal Cannula 2.0 28 11/28/17 19:26 Room Air 21 11/28/17 19:26 92 Room Air 21 11/28/17 19:25 79 18 92 Room Air 21 11/28/17 19:00 97.7 82 24 145/68 Nasal Cannula 2.0 97.7 11/28/17 19:00 Nasal Cannula 2.0 11/28/17 16:00 98.1 84 20 114/62 97 Nasal Cannula 3.0 98.1 Intake and Output 11/28/17 11/29/17 19:00 07:00 Intake Total 450 ml Output Total 2000 ml Balance 450 ml -2000 ml Intake Oral 450 ml Output Urine Total 0 ml Hemodialysis UF 2000 ml # Voids 1 Laboratory Tests 11/29/17 05:25: White Blood Count 9.9, Red Blood Count 3.50L, Hemoglobin 10.3L, Hematocrit 30.6L , Mean Corpuscular Volume 87, Mean Corpuscular Hemoglobin 29.3, Mean Corpuscular Hemoglobin Concent 33.6, Red Cell Distribution Width 14.4, Platelet Count 247, Mean Platelet Volume 7.3, Neutrophils (%) (Auto) 83.9H, Lymphocytes ( %) (Auto) 5.6L, Monocytes (%) (Auto) 9.9, Eosinophils (%) (Auto) 0.2, Basophils (%) (Auto) 0.4, Sodium Level 133L, Potassium Level 4.5, Chloride Level 96L, Carbon Dioxide Level 26, Anion Gap 11, Blood Urea Nitrogen 30H, Creatinine 6.0H , Estimat Glomerular Filtration Rate , Glucose Level 153H, Calcium Level 9.3 Height (Feet): 5 Height (Inches): 4.00 Weight (Pounds): 175 General Appearance: lethargic EENT: normal ENT inspection Neck: normal alignment Cardiovascular: normal peripheral pulses, normal rate, regular rhythm Respiratory/Chest: decreased breath sounds Abdomen: normal bowel sounds, non tender, soft Extremities: normal inspection Edema: no edema noted Arm (L), no edema noted Arm (R), no edema noted Leg (L), no edema noted Leg (R), no edema noted Pedal (L), no edema noted Pedal (R), no edema noted Generalized Neurologic: motor weakness Skin: normal pigmentation, warm/dry PEDRO LUIS CALDERÓN Nov 29, 2017 12:17
--- NOTE | 2017-11-29 14:42 | Pulmonology Progress Note ---
Assessment/Plan Problems: (1) Dyspnea (2) Nausea & vomiting (3) ESRF (end stage renal failure) (4) CHF (congestive heart failure) (5) A-fib (6) Pacemaker (7) Failure to thrive in adult (8) Diabetes Assessment/Plan sleeping wbc wnl no SOB titrate fio2 to sat of 92% HR controlled HD as per nephrology, dialyzed yesterday. dc planning Subjective ROS Limited/Unobtainable: No Interval Events: more awake Allergies: Coded Allergies: AZITHROMYCIN (Verified Allergy, Unknown, 11/25/17) WARFARIN (Verified Allergy, Unknown, 11/25/17) Objective Last 24 Hour Vital Signs Date Time Temp Pulse Resp B/P (MAP) Pulse Ox O2 Delivery O2 Flow Rate FiO2 11/29/17 12:00 98.5 96 18 146/86 98 98.5 11/29/17 11:58 98 20 99 Room Air 21 11/29/17 11:48 96 18 96 Room Air 21 11/29/17 08:00 98.3 82 18 126/68 95 98.3 11/29/17 07:11 96 18 99 Room Air 21 11/29/17 07:01 94 16 98 Room Air 21 11/29/17 07:01 Room Air 21 11/29/17 07:01 98 Room Air 21 11/29/17 04:00 99 Nasal Cannula 3.0 11/29/17 04:00 99.0 84 20 120/72 93 Room Air 99.0 11/29/17 00:00 97 Nasal Cannula 3.0 11/29/17 00:00 98.8 93 20 125/72 97 Nasal Cannula 98.8 11/28/17 23:23 Nasal Cannula 2.0 11/28/17 23:18 99.0 90 24 177/71 Nasal Cannula 2.0 99.0 11/28/17 20:00 99 Nasal Cannula 3.0 11/28/17 20:00 97.7 88 20 148/75 99 Nasal Cannula 97.7 11/28/17 19:39 78 16 99 Nasal Cannula 2.0 28 11/28/17 19:26 Room Air 21 11/28/17 19:26 92 Room Air 21 11/28/17 19:25 79 18 92 Room Air 21 11/28/17 19:00 97.7 82 24 145/68 Nasal Cannula 2.0 97.7 11/28/17 19:00 Nasal Cannula 2.0 11/28/17 16:00 98.1 84 20 114/62 97 Nasal Cannula 3.0 98.1 Intake and Output 11/28/17 11/29/17 19:00 07:00 Intake Total 450 ml Output Total 2000 ml Balance 450 ml -2000 ml Intake Oral 450 ml Output Urine Total 0 ml Hemodialysis UF 2000 ml # Voids 1 Objective General Appearance: sleepy Lines, tubes and drains: peripheral HEENT: normocephalic, atraumatic, anicteric, mucous membranes moist Neck: non-tender, normal alignment, supple Respiratory/Chest: lungs clear, other - R chest pacemaker Cardiovascular/Chest: no JVD, irregularly irregular - A fib paced, other - LUE AV shunt + bruit/thrill Abdomen: normal bowel sounds, non tender, soft Extremities: non-tender Skin Exam: warm/dry Neurologic: alert, oriented x 3, responsive Musculoskeletal: normal muscle bulk Laboratory Tests 11/29/17 05:25: White Blood Count 9.9, Red Blood Count 3.50L, Hemoglobin 10.3L, Hematocrit 30.6L , Mean Corpuscular Volume 87, Mean Corpuscular Hemoglobin 29.3, Mean Corpuscular Hemoglobin Concent 33.6, Red Cell Distribution Width 14.4, Platelet Count 247, Mean Platelet Volume 7.3, Neutrophils (%) (Auto) 83.9H, Lymphocytes ( %) (Auto) 5.6L, Monocytes (%) (Auto) 9.9, Eosinophils (%) (Auto) 0.2, Basophils (%) (Auto) 0.4, Sodium Level 133L, Potassium Level 4.5, Chloride Level 96L, Carbon Dioxide Level 26, Anion Gap 11, Blood Urea Nitrogen 30H, Creatinine 6.0H , Estimat Glomerular Filtration Rate , Glucose Level 153H, Calcium Level 9.3 Current Medications Medications (Trade) Dose Ordered Sig/Keeley Route PRN Reason Start Time Stop Time Status Last Admin Dose Admin Acetaminophen (Tylenol) 650 mg Q4H PRN ORAL T>100.5/ mild pain 11/28/17 18:00 12/27/17 17:59 Albuterol/ Ipratropium (Albuterol/ Ipratropium) 3 ml Q4H PRN HHN Shortness of Breath 11/28/17 18:00 11/30/17 17:59 Albuterol/ Ipratropium (Albuterol/ Ipratropium) 3 ml TIDRT INH 11/28/17 19:00 12/01/17 18:59 11/29/17 11:48 Apixaban (Eliquis) 5 mg BID ORAL 11/28/17 18:00 12/25/17 17:59 11/29/17 08:42 Atorvastatin Calcium (Lipitor) 40 mg BEDTIME ORAL 11/28/17 21:00 12/25/17 20:59 Benzonatate (Tessalon Perles) 100 mg THREE TIMES A DAY ORAL 11/28/17 18:00 12/26/17 17:59 11/29/17 12:30 Dextrose (Dextrose 50%) STAT PRN IV Hypoglycemia 11/28/17 18:00 12/28/17 17:59 Docusate Sodium (Colace) 100 mg THREE TIMES A DAY ORAL 11/28/17 18:00 12/27/17 17:59 11/29/17 12:30 Dronabinol (Marinol) 2.5 mg DAILY ORAL 11/29/17 09:00 12/27/17 13:59 Guaifenesin/ Dextromethorphan (Robitussin DM Syrup) 10 ml Q6H PRN ORAL For Cough 11/28/17 18:00 12/26/17 17:59 Insulin Aspart (NovoLOG) BEFORE MEALS AND HS SUBQ 11/28/17 21:00 12/26/17 16:29 11/29/17 12:35 Levothyroxine Sodium (Synthroid) 25 mcg DAILY@0630 ORAL 11/29/17 06:30 12/26/17 06:29 11/29/17 06:21 Levothyroxine Sodium (Synthroid) 112 mcg DAILY@0630 ORAL 11/29/17 06:30 12/26/17 06:29 11/29/17 06:22 Nitroglycerin (Ntg) 0.4 mg Q5M PRN SL Prn Chest Pain 11/28/17 18:00 12/26/17 17:59 Ondansetron HCl (Zofran) 4 mg Q6H PRN IVP Nausea & Vomiting 11/28/17 18:00 12/25/17 17:59 Polyethylene Glycol (Miralax) 17 gm DAILYPRN PRN ORAL Constipation 11/28/17 18:00 12/28/17 17:59 11/29/17 12:30 Sennosides (Senokot) 1 tab DAILY ORAL 11/29/17 09:00 12/27/17 13:14 11/29/17 08:42 Sevelamer Carbonate (Renvela) 2,400 mg TID ORAL 11/28/17 18:00 12/25/17 17:59 11/29/17 12:30 Temazepam (Restoril) 15 mg HSPRN PRN ORAL Insomnia 11/28/17 21:00 12/02/17 20:59 BETTINA DELUCA Nov 29, 2017 14:42
[2017-11-29 16:00] VITALS: BP 157/87
[2017-11-29 20:00] VITALS: BP 150/90
[2017-11-29] MEDS: Atorvastatin 20mg tab ORAL SCH (21:24)
--- NOTE | 2017-11-29 23:44 | General Progress Note ---
Assessment/Plan Status: stable Assessment/Plan 1. Anemia due to underlying chronic disease. --> Continues to remain stable and no prbc needed at this time. --> Continue to closely monitor. --> Anemia workup reviewed. Ferritin 2833, Vit B12 1057 --> Transfuse if hgb <7 or symptomatic. 2. Anemia due to underlying kidney disease. --> Continue to closely monitor. --> Patient ongoing Hemodialysis as needed. 3. Hypokalemia. Replace potassium as needed. 4. Hyponatremia. Consider Nephrology evaluation. 5. Altered mental status. The patient to be seen by Neurology, Dr. King. 6. Lactic acidosis. Rule out infection. 7. End-stage renal disease, on hemodialysis. Subjective Date patient seen: Nov 29, 2017 Constitutional: Denies: no symptoms, chills, diaphoresis, fever, malaise, weakness, other HEENT: Denies: no symptoms, eye pain, blurred vision, tearing, double vision, ear pain, ear discharge, nose pain, nose congestion, throat pain, throat swelling, mouth pain, mouth swelling, other Cardiovascular: Denies: no symptoms, chest pain, edema, irregular heart rate, lightheadedness, palpitations, syncope, other Respiratory: Denies: no symptoms, cough, orthopnea, shortness of breath, SOB with excertion, SOB at rest, sputum, stridor, wheezing, other Gastrointestinal/Abdominal: Denies: no symptoms, abdomen distended, abdominal pain, black stools, tarry stools, blood in stool, constipated, diarrhea, difficulty swallowing, nausea, poor appetite, poor fluid intake, rectal bleeding , vomiting, other Genitourinary: Denies: no symptoms, burning, discharge, frequency, flank pain, hematuria, incontinence, pain, urgency, other Hematologic/Lymphatic: Reports: anemia Allergies: Coded Allergies: AZITHROMYCIN (Verified Allergy, Unknown, 11/25/17) WARFARIN (Verified Allergy, Unknown, 11/25/17) Subjective H/H stable. No acute distress. Objective Last 24 Hour Vital Signs Date Time Temp Pulse Resp B/P (MAP) Pulse Ox O2 Delivery O2 Flow Rate FiO2 11/29/17 20:00 98.6 98 21 150/90 97 98.6 11/29/17 19:40 92 20 97 Room Air 21 11/29/17 19:30 Room Air 21 11/29/17 19:30 93 Room Air 21 11/29/17 19:30 89 20 93 Room Air 21 11/29/17 17:44 11/29/17 16:00 98.2 117 20 157/87 96 98.2 11/29/17 12:00 98.5 96 18 146/86 98 98.5 11/29/17 11:58 98 20 99 Room Air 21 11/29/17 11:48 96 18 96 Room Air 21 11/29/17 08:00 98.3 82 18 126/68 95 98.3 11/29/17 07:11 96 18 99 Room Air 21 11/29/17 07:01 94 16 98 Room Air 21 11/29/17 07:01 Room Air 21 11/29/17 07:01 98 Room Air 21 11/29/17 04:00 99 Nasal Cannula 3.0 11/29/17 04:00 99.0 84 20 120/72 93 Room Air 99.0 11/29/17 00:00 97 Nasal Cannula 3.0 11/29/17 00:00 98.8 93 20 125/72 97 Nasal Cannula 98.8 Intake and Output 11/28/17 11/29/17 19:00 07:00 Intake Total 450 ml Output Total 2000 ml Balance 450 ml -2000 ml Intake Oral 450 ml Output Urine Total 0 ml Hemodialysis UF 2000 ml # Voids 1 Laboratory Tests 11/29/17 05:25: White Blood Count 9.9, Red Blood Count 3.50L, Hemoglobin 10.3L, Hematocrit 30.6L , Mean Corpuscular Volume 87, Mean Corpuscular Hemoglobin 29.3, Mean Corpuscular Hemoglobin Concent 33.6, Red Cell Distribution Width 14.4, Platelet Count 247, Mean Platelet Volume 7.3, Neutrophils (%) (Auto) 83.9H, Lymphocytes ( %) (Auto) 5.6L, Monocytes (%) (Auto) 9.9, Eosinophils (%) (Auto) 0.2, Basophils (%) (Auto) 0.4, Sodium Level 133L, Potassium Level 4.5, Chloride Level 96L, Carbon Dioxide Level 26, Anion Gap 11, Blood Urea Nitrogen 30H, Creatinine 6.0H , Estimat Glomerular Filtration Rate , Glucose Level 153H, Calcium Level 9.3 Height (Feet): 5 Height (Inches): 4.00 Weight (Pounds): 175 General Appearance: no apparent distress Cardiovascular: normal rate Respiratory/Chest: normal breath sounds Abdomen: non tender Judd Figueroa Nov 29, 2017 23:44
[2017-11-30] MEDS: Levothyroxine 25mcg tab ORAL SCH (06:35)
[2017-11-30] MEDS: NovoLOG Insulin Flexpen SUBQ SCH ×2 (06:40→13:29)
[2017-11-30] MEDS: Albuterol/Ipratropium 3ml neb INH SCH ×2 (07:30→12:52)
[2017-11-30 07:37] LABS: ANION GAP 10 mmol/L (5-15); BLOOD UREA NITROGEN 48 mg/dL (7-18); CALCIUM 9.6 MG/DL (8.5-10.1); CARBON DIOXIDE 25 MMOL/L (21-32); CHLORIDE 91 MMOL/L (98-107); POTASSIUM 5.1 MMOL/L (3.5-5.1); SODIUM 126 MMOL/L (136-145)
[2017-11-30 08:00] VITALS: BP 171/84
[2017-11-30] MEDS: Eliquis 2.5mg tablet ORAL SCH (08:25)
[2017-11-30] MEDS: Docusate 100mg cap ORAL SCH ×2 (08:25→13:28)
[2017-11-30] MEDS: Renvela 2400 mg pkt ORAL SCH ×2 (08:26→13:28)
[2017-11-30] MEDS: Benzonatate 100mg Perles ORAL SCH ×2 (08:26→13:28)
[2017-11-30] MEDS: Sennosides 8.6mg ORAL SCH (08:26)
[2017-11-30] MEDS: Dronabinol 2.5mg Cap ORAL SCH ×2 (08:27→08:37)
--- NOTE | 2017-11-30 08:29 | General Progress Note ---
Assessment/Plan Problem List: (1) Diabetes ICD Codes: E11.9 - Type 2 diabetes mellitus without complications SNOMED: 35811127 (2) Hypothyroid ICD Codes: E03.9 - Hypothyroidism, unspecified SNOMED: 44358440 (3) Renal failure ICD Codes: N19 - Unspecified kidney failure SNOMED: 62756405 Qualifiers: Qualified Codes: N18.6 - End stage renal disease; Z99.2 - Dependence on renal dialysis (4) Failure to thrive in adult ICD Codes: R62.7 - Adult failure to thrive SNOMED: 166970994 (5) CHF (congestive heart failure) ICD Codes: I50.9 - Heart failure, unspecified SNOMED: 80760624 (6) Pacemaker ICD Codes: Z95.0 - Presence of cardiac pacemaker SNOMED: 570263486 (7) ESRF (end stage renal failure) ICD Codes: N18.6 - End stage renal disease SNOMED: 28788046 Status: unchanged Assessment/Plan ot pt diet dialysis bp bs control waldemartmtika hirsch Subjective Constitutional: Reports: weakness Allergies: Coded Allergies: AZITHROMYCIN (Verified Allergy, Unknown, 11/25/17) WARFARIN (Verified Allergy, Unknown, 11/25/17) All Systems: reviewed and negative except above Subjective o2nc calm Objective Last 24 Hour Vital Signs Date Time Temp Pulse Resp B/P (MAP) Pulse Ox O2 Delivery O2 Flow Rate FiO2 11/30/17 07:40 89 20 96 Room Air 21 11/30/17 07:30 87 22 95 Room Air 21 11/30/17 07:30 Room Air 11/30/17 07:30 95 Room Air 11/30/17 04:00 97.7 96 22 97 97.7 11/30/17 00:00 97.7 82 20 97 97.7 11/29/17 20:00 98.6 98 21 150/90 97 98.6 11/29/17 19:40 92 20 97 Room Air 21 11/29/17 19:30 Room Air 21 11/29/17 19:30 93 Room Air 21 11/29/17 19:30 89 20 93 Room Air 21 11/29/17 17:44 11/29/17 16:00 98.2 117 20 157/87 96 98.2 11/29/17 12:00 98.5 96 18 146/86 98 98.5 11/29/17 11:58 98 20 99 Room Air 21 11/29/17 11:48 96 18 96 Room Air 21 Intake and Output 11/29/17 11/30/17 19:00 07:00 Intake Total 240 ml 720 ml Balance 240 ml 720 ml Intake Oral 240 ml 720 ml # Voids 1 2 # Bowel Movements 1 Laboratory Tests 11/30/17 06:20: Sodium Level 126L, Potassium Level 5.1, Chloride Level 91L, Carbon Dioxide Level 25, Anion Gap 10, Blood Urea Nitrogen 48H, Creatinine 8.0H, Estimat Glomerular Filtration Rate , Glucose Level 161H, Calcium Level 9.6 Height (Feet): 5 Height (Inches): 4.00 Weight (Pounds): 179 General Appearance: lethargic EENT: normal ENT inspection Neck: normal alignment Cardiovascular: normal peripheral pulses, normal rate, regular rhythm Respiratory/Chest: chest wall non-tender, lungs clear, normal breath sounds Abdomen: normal bowel sounds, non tender, soft Extremities: normal inspection Edema: no edema noted Arm (L), no edema noted Arm (R), no edema noted Leg (L), no edema noted Leg (R), no edema noted Pedal (L), no edema noted Pedal (R), no edema noted Generalized Neurologic: motor weakness Skin: normal pigmentation, warm/dry PEDRO LUIS CALDERÓN Nov 30, 2017 08:29
--- NOTE | 2017-11-30 09:41 | Pulmonology Progress Note ---
Assessment/Plan Problems: (1) Dyspnea (2) Nausea & vomiting (3) ESRF (end stage renal failure) (4) CHF (congestive heart failure) (5) A-fib (6) Pacemaker (7) Failure to thrive in adult (8) Diabetes Assessment/Plan sleeping wbc wnl no SOB titrate fio2 to sat of 92% HR controlled pt wants to go home dc planning today after HD Subjective ROS Limited/Unobtainable: No Allergies: Coded Allergies: AZITHROMYCIN (Verified Allergy, Unknown, 11/25/17) WARFARIN (Verified Allergy, Unknown, 11/25/17) Objective Last 24 Hour Vital Signs Date Time Temp Pulse Resp B/P (MAP) Pulse Ox O2 Delivery O2 Flow Rate FiO2 11/30/17 08:26 150/90 11/30/17 08:00 97.7 106 20 171/84 91 97.7 11/30/17 07:40 89 20 96 Room Air 21 11/30/17 07:30 87 22 95 Room Air 21 11/30/17 07:30 Room Air 21 11/30/17 07:30 95 Room Air 21 11/30/17 04:00 97.7 96 22 97 97.7 11/30/17 00:00 97.7 82 20 97 97.7 11/29/17 20:00 98.6 98 21 150/90 97 98.6 11/29/17 19:40 92 20 97 Room Air 21 11/29/17 19:30 Room Air 21 11/29/17 19:30 93 Room Air 21 11/29/17 19:30 89 20 93 Room Air 21 11/29/17 17:44 11/29/17 16:00 98.2 117 20 157/87 96 98.2 11/29/17 12:00 98.5 96 18 146/86 98 98.5 11/29/17 11:58 98 20 99 Room Air 21 11/29/17 11:48 96 18 96 Room Air 21 Intake and Output 11/29/17 11/30/17 19:00 07:00 Intake Total 240 ml 720 ml Balance 240 ml 720 ml Intake Oral 240 ml 720 ml # Voids 1 2 # Bowel Movements 1 Objective General Appearance: sleepy Lines, tubes and drains: peripheral HEENT: normocephalic, atraumatic, anicteric, mucous membranes moist Neck: non-tender, normal alignment, supple Respiratory/Chest: lungs clear, other - R chest pacemaker Cardiovascular/Chest: no JVD, irregularly irregular - A fib paced, other - LUE AV shunt + bruit/thrill Abdomen: normal bowel sounds, non tender, soft Extremities: non-tender Skin Exam: warm/dry Neurologic: alert, oriented x 3, responsive Musculoskeletal: normal muscle bulk Laboratory Tests 11/30/17 06:20: Sodium Level 126L, Potassium Level 5.1, Chloride Level 91L, Carbon Dioxide Level 25, Anion Gap 10, Blood Urea Nitrogen 48H, Creatinine 8.0H, Estimat Glomerular Filtration Rate , Glucose Level 161H, Calcium Level 9.6 Current Medications Medications (Trade) Dose Ordered Sig/Keeley Route PRN Reason Start Time Stop Time Status Last Admin Dose Admin Acetaminophen (Tylenol) 650 mg Q4H PRN ORAL T>100.5/ mild pain 11/28/17 18:00 12/27/17 17:59 Albuterol/ Ipratropium (Albuterol/ Ipratropium) 3 ml Q4H PRN HHN Shortness of Breath 11/28/17 18:00 11/30/17 17:59 Albuterol/ Ipratropium (Albuterol/ Ipratropium) 3 ml TIDRT INH 11/28/17 19:00 12/01/17 18:59 11/30/17 07:30 Apixaban (Eliquis) 5 mg BID ORAL 11/28/17 18:00 12/25/17 17:59 11/30/17 08:25 Atorvastatin Calcium (Lipitor) 40 mg BEDTIME ORAL 11/28/17 21:00 12/25/17 20:59 11/29/17 21:24 Benzonatate (Tessalon Perles) 100 mg THREE TIMES A DAY ORAL 11/28/17 18:00 12/26/17 17:59 11/30/17 08:26 Dextrose (Dextrose 50%) STAT PRN IV Hypoglycemia 11/28/17 18:00 12/28/17 17:59 Docusate Sodium (Colace) 100 mg THREE TIMES A DAY ORAL 11/28/17 18:00 12/27/17 17:59 11/30/17 08:25 Dronabinol (Marinol) 2.5 mg DAILY ORAL 11/29/17 09:00 12/27/17 13:59 11/30/17 08:37 Guaifenesin/ Dextromethorphan (Robitussin DM Syrup) 10 ml Q6H PRN ORAL For Cough 11/28/17 18:00 12/26/17 17:59 Insulin Aspart (NovoLOG) BEFORE MEALS AND HS SUBQ 11/28/17 21:00 12/26/17 16:29 11/30/17 06:40 Levothyroxine Sodium (Synthroid) 25 mcg DAILY@0630 ORAL 11/29/17 06:30 12/26/17 06:29 11/30/17 06:35 Levothyroxine Sodium (Synthroid) 112 mcg DAILY@0630 ORAL 11/29/17 06:30 12/26/17 06:29 11/30/17 06:35 Nitroglycerin (Ntg) 0.4 mg Q5M PRN SL Prn Chest Pain 11/28/17 18:00 12/26/17 17:59 11/30/17 08:26 Ondansetron HCl (Zofran) 4 mg Q6H PRN IVP Nausea & Vomiting 11/28/17 18:00 12/25/17 17:59 Polyethylene Glycol (Miralax) 17 gm DAILYPRN PRN ORAL Constipation 11/28/17 18:00 12/28/17 17:59 11/29/17 12:30 Sennosides (Senokot) 1 tab DAILY ORAL 11/29/17 09:00 12/27/17 13:14 11/30/17 08:26 Sevelamer Carbonate (Renvela) 2,400 mg TID ORAL 11/28/17 18:00 12/25/17 17:59 11/30/17 08:26 Temazepam (Restoril) 15 mg HSPRN PRN ORAL Insomnia 11/28/17 21:00 12/02/17 20:59 11/29/17 23:08 BETTINA DELUCA Nov 30, 2017 09:41
--- NOTE | 2017-11-30 10:57 | Cardiology Progress Note ---
Assessment/Plan Problem List: (1) Failure to thrive in adult (2) A-fib (3) Pacemaker (4) ESRF (end stage renal failure) Status: stable, progressing Status Narrative Pt w/ permanent AF, on Eliquis and b blockers as outpt. Ventricular rates have increased in AF, and BP is elevated. She has CAD, previous CABG and had mild troponin increase on adm, c/w demand ischemia. Assessment/Plan Will restart metoprolol at low dose for rate control in AF as well as for HTN and CAD. Continue Eliquis bid Plan for dialysis later today, per nephrology. Subjective ROS Limited/Unobtainable: No Subjective Cardiology for Dr. Argueta Mrs Reyes is OOB to chair. No c/o CP or palpitations. Objective Last 24 Hour Vital Signs Date Time Temp Pulse Resp B/P (MAP) Pulse Ox O2 Delivery O2 Flow Rate FiO2 11/30/17 08:26 150/90 11/30/17 08:00 97.7 106 20 171/84 91 97.7 11/30/17 07:40 89 20 96 Room Air 21 11/30/17 07:30 87 22 95 Room Air 21 11/30/17 07:30 Room Air 21 11/30/17 07:30 95 Room Air 21 11/30/17 04:00 97.7 96 22 97 97.7 11/30/17 00:00 97.7 82 20 97 97.7 11/29/17 20:00 98.6 98 21 150/90 97 98.6 11/29/17 19:40 92 20 97 Room Air 21 11/29/17 19:30 Room Air 21 11/29/17 19:30 93 Room Air 21 11/29/17 19:30 89 20 93 Room Air 21 11/29/17 17:44 11/29/17 16:00 98.2 117 20 157/87 96 98.2 11/29/17 12:00 98.5 96 18 146/86 98 98.5 11/29/17 11:58 98 20 99 Room Air 11/29/17 11:48 96 18 96 Room Air 21 General Appearance: WD/WN, no apparent distress, alert EENT: PERRL/EOMI Neck: supple, no JVD Rhythm: Afib Cardiovascular: normal rate, systolic murmur, irregularly irregular Respiratory/Chest: lungs clear Abdomen: non tender, soft Extremities: other - L UE AV graft, + bruit Intake and Output 11/29/17 11/30/17 19:00 07:00 Intake Total 240 ml 720 ml Balance 240 ml 720 ml Intake Oral 240 ml 720 ml # Voids 1 2 # Bowel Movements 1 Laboratory Tests Test 11/30/17 06:20 Sodium Level 126 MMOL/L (136-145) L Potassium Level 5.1 MMOL/L (3.5-5.1) Chloride Level 91 MMOL/L (98-107) L Carbon Dioxide Level 25 MMOL/L (21-32) Anion Gap 10 mmol/L (5-15) Blood Urea Nitrogen 48 mg/dL (7-18) H Creatinine 8.0 MG/DL (0.55-1.30) H Estimat Glomerular Filtration Rate mL/min (>60) Glucose Level 161 MG/DL (74-106) H Calcium Level 9.6 MG/DL (8.5-10.1) KELLEY LOPEZ Nov 30, 2017 10:57
[2017-11-30] MEDS ORDERED: METOPROLOL TART25 MG ORAL (12:55)
[2017-11-30 16:00] VITALS: BP 170/99
[2017-11-30 16:07] VITALS: BP 150/90
[2017-11-30] MEDS ORDERED: Metoprolol Tartrate 12.5mg TAB ORAL ONE (16:10)
[2017-11-30] MEDS ORDERED: Metoprolol Tartrate 12.5mg TAB ORAL SCH (21:00)
--- NOTE | 2017-12-01 11:52 | General Progress Note ---
Assessment/Plan Assessment/Plan #. Anemia due to underlying kidney disease. --> Continue to closely monitor. --> Patient ongoing Hemodialysis. --> Improved. #. Anemia due to underlying chronic disease. --> Continues to remain stable and no prbc needed at this time. --> Continue to closely monitor. --> Anemia workup reviewed. Ferritin 2833, Vit B12 1057 --> Transfuse if hgb <7 or symptomatic. #. Hypokalemia. Replace potassium as needed. #. Hyponatremia. Consider Nephrology evaluation. #. Altered mental status. The patient to be seen by Neurology, Dr. King. #. Lactic acidosis. Rule out infection. #. End-stage renal disease, on hemodialysis. Subjective Date patient seen: Nov 30, 2017 Constitutional: Denies: no symptoms, chills, diaphoresis, fever, malaise, weakness, other HEENT: Denies: no symptoms, eye pain, blurred vision, tearing, double vision, ear pain, ear discharge, nose pain, nose congestion, throat pain, throat swelling, mouth pain, mouth swelling, other Cardiovascular: Denies: no symptoms, chest pain, edema, irregular heart rate, lightheadedness, palpitations, syncope, other Respiratory: Denies: no symptoms, cough, orthopnea, shortness of breath, SOB with excertion, SOB at rest, sputum, stridor, wheezing, other Gastrointestinal/Abdominal: Denies: no symptoms, abdomen distended, abdominal pain, black stools, tarry stools, blood in stool, constipated, diarrhea, difficulty swallowing, nausea, poor appetite, poor fluid intake, rectal bleeding , vomiting, other Genitourinary: Denies: no symptoms, burning, discharge, frequency, flank pain, hematuria, incontinence, pain, urgency, other Hematologic/Lymphatic: Reports: anemia Allergies: Coded Allergies: AZITHROMYCIN (Verified Allergy, Unknown, 11/25/17) WARFARIN (Verified Allergy, Unknown, 11/25/17) Subjective Ongoing hemodialysis. No acute events. Stable. Objective Last 24 Hour Vital Signs Date Time Temp Pulse Resp B/P (MAP) Pulse Ox O2 Delivery O2 Flow Rate FiO2 11/30/17 16:07 106 150/90 11/30/17 16:00 99.2 94 20 170/99 93 99.2 11/30/17 15:35 Room Air 3.0 21 11/30/17 12:53 Room Air 21 11/30/17 12:53 Room Air 21 Intake and Output 11/30/17 12/01/17 19:00 07:00 Intake Total 480 ml Output Total 2100 ml Balance -1620 ml Intake Oral 480 ml Hemodialysis UF 2100 ml Height (Feet): 5 Height (Inches): 4.00 Weight (Pounds): 179 General Appearance: no apparent distress EENT: normal ENT inspection Neck: normal alignment Cardiovascular: normal rate, regular rhythm Respiratory/Chest: lungs clear Abdomen: non tender, soft Judd Figueroa Dec 01, 2017 11:51
--- NOTE | 2017-12-03 07:52 | Discharge Summary ---
Discharge Summary Hospital Course Date of Admission Nov 25, 2017 at 13:27 Date of Discharge Nov 30, 2017 at 16:34 Admitting Diagnosis hypotension, RF, weakness w/ decreased PO intake HPI Susie Peña is a 77 year old female who was admitted on Nov 25, 2017 at 13:27 for Hypotension,Renal Failure,Weakness With Decreased Hospital Course dc summary #[id number] Discharge Medications Continued Medications: Amlodipine Besylate (Norvasc) 5 Mg Tab 5 MG PO DAILY, TAB Apixaban (Eliquis) 2.5 Mg Tablet 2.5 MG PO DAILY, TAB Atorvastatin Calcium* (Atorvastatin Calcium*) 40 Mg Tablet 40 MG ORAL BEDTIME, TAB Captopril (Captopril) 25 Mg Tablet 25 MG PO DAILY Levothyroxine Sodium* (Levothyroxine Sodium*) 125 Mcg Tablet 137 MCG ORAL DAILY, TAB Take in the morning on an empty stomach, at least 30 minutes before food. Metoprolol Tartrate* (Metoprolol Tartrate*) 25 Mg Tablet 12.5 MG ORAL EVERY 12 HOURS, TAB Sennosides (Senna) 8.6 Mg Tablet 8.6 MG PO, TAB Sevelamer Carbonate* (Renvela*) 2.4 Gm Powd.pack 2400 MG ORAL during meal, PACK Temazepam* (Restoril*) 7.5 Mg Capsule 15 MG PO QHS, CAP Take 1 capsule by mouth aat bedtime. [Metformin] () Discharge Condition Upon Discharge: stable Discharge Disposition Patient was discharged to Home with [facility] Discharge Diagnoses: Marcelino (Sarah)Sherice NP Dec 03, 2017 07:52
--- NOTE | 2017-12-04 02:45 | Discharge Summary 2 SIG ---
DATE OF ADMISSION: 11/25/2017 DATE OF DISCHARGE: 11/30/2017 REASON FOR ADMISSION: 77-year-old Chinese-speaking female with past medical history of end-stage renal disease, on hemodialysis, coronary artery disease with myocardial infarction and CABG, CHF, diabetes, hypertension, atrial fibrillation, CVA with right-sided weakness, presented to the emergency department due to generalized weakness, decreased appetite, and cough for one week. Per daughter, the patient was having symptomatic treatment per primary care provider and on the last visit was noted to be hypotensive. The patient was advised to go to emergency department for further evaluation. Upon evaluation, the patient was found to have elevated troponin - 0.091, proBNP -10,519. Renal parameters were consistent with known history of end-stage renal disease. Chest x-ray showed mild cardiomegaly, no acute process. EKG revealed atrial fibrillation with ventricular-paced rhythm at 63. No palpitation or dizziness. Generalized weakness. No history of COPD or asthma. Dry cough. No wheezing. No hemoptysis. The patient was admitted with generalized weakness, likely dehydration, electrolyte abnormalities with hyponatremia and hypokalemia with sodium -125 and potassium -3.1, end-stage renal disease, on hemodialysis, acute bronchitis, elevated troponin: possible troponin leak secondary to end-stage renal disease , possible demand ischemia, atrial fibrillation, hypothyroidism, diabetes, pacemaker. HOSPITAL COURSE: The patient admitted to telemetry floor. Cardiology, Nephrology, Hematology, Pulmonology, and Neurology consults were requested. Serial troponin were checked. According to documentation manager, troponin rise was not quite representing acute plaque rupture. The patient was on medical therapy including beta-ilda, aspirin, and high-intensity statin. The patient had permanent atrial fibrillation. The patient was on Eliquis twice a day. The patient at high risk for cerebrovascular accident given very high CHADS-VASc score. Per documentation manager, the patient possibly had troponin leak secondary to end-stage renal disease, probably demand ischemia in setting of underlying coronary artery disease. Echocardiogram revealed preserved ejection fraction of 60% to 65%, right ventricular systolic pressure of 29 as well as evidence of significant diastolic dysfunction grade 3, but no evidence of decompensation, no evidence of CHF exacerbation. The patient was dehydrated, initially came with low blood pressure and had emesis afterwards. Dialysis was done. According to freight adjuster, the patient initially had hypovolemia, hyponatremia, and hypokalemia which was addressed with hemodialysis. Renal parameters and electrolytes were closely monitored. Nephrotoxics were avoided. Electrolytes normalized According to documentation manager, the patient had permanent atrial fibrillation and needed anticoagulation on regular basis along with beta-ilda due to the high risk for recurrent CVA. Blood pressure was treated with beta- ilda. Blood pressure normalized. The patient was on supplemental oxygen as needed to keep pulse oximetry above 92%. Prior to discharge, pulse oximetry stable on room air. Pulmonary toilet was provided [id number] and as needed in form of chest physiotherapy and hand held nebulizing treatment with bronchodilators. Antitussive provided as needed along with Tessalon Pearles. . Antiemetic provided as needed. Bowel regimen instituted. TSH was within normal limits. Current dose of levothyroxine was continued. GI prophylaxis provided. Blood sugar was managed with sliding scale of sensitive insulin. Hemoglobin A1c -7.8, patient in need of further optimization of anti-glycemic regimen as an outpatient. Hemoglobin and hematocrit were closely monitored and remained at the baseline. No need for transfusion. Blood cultures were negative. Influenza screen test was negative. The patient was stable for discharge home with home health services and follow up with primary care provider next week. Follow up with outpatient hemodialysis. FINAL DIAGNOSES: 1. Generalized weakness ( likely secondary to dehydration, acute bronchitis, and electrolyte abnormalities) 2. Hypovolemic hyponatremia. 3. Dehydration. 4. Elevated troponin, probably demand ischemia in setting of underlying coronary artery disease. 5. End-stage renal disease, on hemodialysis. 6. Acute bronchitis. 7. Permanent atrial fibrillation. 8. Pacemaker. 9. Hypokalemia. 10. CHF. 11. Anemia of chronic disease. 12. Pacemaker. 13. Hypothyroidism DISCHARGE MEDICATIONS: See medication reconciliation list. DISCHARGE INSTRUCTIONS: The patient discharged home with home health services. Follow up with primary care provider next week. Follow up with outpatient hemodialysis. Magnus Leyva D.O. Sherice Benson ([facility]ula N.PArley DR: Ifeanyi JOB#: [id number] CC: NATALIA
== END 2017-11-30 16:34 | disposition home health service (06) | DRG 291 ==
LOC: EDBD 12:08 → EDUNIT# 12:08 → EMR 13:00 → 2E 13:27 → EDBEDREQ 13:45 → 2E 15:24 → 4E 11-28 17:21
PROC: 5A1D70Z Performance of Urinary Filtration, Intermittent, Less than 6 Hours Per Day (ICD-10-PCS; principal; 2017-11-26)
PROC: 5A1D70Z Performance of Urinary Filtration, Intermittent, Less than 6 Hours Per Day (ICD-10-PCS; 2017-11-28)
PROC: 5A1D70Z Performance of Urinary Filtration, Intermittent, Less than 6 Hours Per Day (ICD-10-PCS; 2017-11-30)
DX: I13.2 Hypertensive heart and chronic kidney disease with heart failure and with stage 5 chronic kidney disease, or end stage renal disease (principal); N18.6 End stage renal disease; I95.9 Hypotension, unspecified; E11.22 Type 2 diabetes mellitus with diabetic chronic kidney disease; E86.0 Dehydration; E87.1 Hypo-osmolality and hyponatremia; I69.351 Hemiplegia and hemiparesis following cerebral infarction affecting right dominant side; I50.32 Chronic diastolic (congestive) heart failure; I48.0 Paroxysmal atrial fibrillation; J20.9 Acute bronchitis, unspecified; E03.9 Hypothyroidism, unspecified; K59.00 Constipation, unspecified; Z99.2 Dependence on renal dialysis; R11.2 Nausea with vomiting, unspecified; E87.6 Hypokalemia; D63.1 Anemia in chronic kidney disease; Z79.4 Long term (current) use of insulin; Z88.1 Allergy status to other antibiotic agents; Z88.8 Allergy status to other drugs, medicaments and biological substances; I25.10 Atherosclerotic heart disease of native coronary artery without angina pectoris; I25.2 Old myocardial infarction; Z95.0 Presence of cardiac pacemaker; Z95.1 Presence of aortocoronary bypass graft; N25.0 Renal osteodystrophy; R62.7 Adult failure to thrive; R41.82 Altered mental status, unspecified
CPT/HCPCS: 36415; 71045; 80048; 80053; 80069; 82248; 82607; 82728; 82962; 83010; 83036; 83090; 83605; 83615; 83880; 84443; 84484; 85025; 85044; 85384; 86710; 87040; 87081; 93005; 93306; 94640; 94664; 94760; 99285; J1815; J2405; J7620